=== PATIENT | male | born 1955 | race Hispanic/Latino ===

== ENCOUNTER 2017-02-18 10:35 | Inpatient (IN) | payer OTHER ==
[2017-02-18 11:09] LABS: Basophils % (Auto) 1.1 % (0.0-1.8); Eosinophils % (Auto) 1.3 % (0.0-4.3); Hematocrit 46.1 % (35.5-45.6); Hemoglobin 15.6 gm/dl (11.8-15.2); Mean Corpuscular HGB Conc 34 % (32-34); Mean Corpuscular Hemoglobin 30 pg (28-32); Mean Corpuscular Volume 87 fl (84-94); Platelet Count 224 K/mm3 (140-440); Red Blood Count 5.28 M/mm3 (3.65-5.03); Red Cell Distribution Width 15.4 % (13.2-15.2); White Blood Count 9.2 K/mm3 (4.5-11.0)
[2017-02-18 11:25] LABS: Anion Gap 18 mmol/L; BUN/Creatinine Ratio 19; Blood Urea Nitrogen 13 mg/dL (9-20); Calcium 9.2 mg/dL (8.4-10.2); Carbon Dioxide 23 mmol/L (22-30); Glucose 134 mg/dL (75-100); Potassium 4.3 mmol/L (3.6-5.0); Sodium 136 mmol/L (137-145)
[2017-02-18] MEDS ORDERED: NACL 0.9% 1000 ML 1,000 ML ONE (11:31)
[2017-02-18] MEDS ORDERED: NACL 0.9% 500 ML 500 ML ONE (11:32)
[2017-02-18] MEDS ORDERED: CORDARONE 150 MG in D5W 100 ML IV ONE (12:00)
[2017-02-18 12:03] LABS: Hematocrit 45.6 % (35.5-45.6); Hemoglobin 15.6 gm/dl (11.8-15.2); Mean Corpuscular HGB Conc 34 % (32-34); Mean Corpuscular Hemoglobin 30 pg (28-32); Mean Corpuscular Volume 87 fl (84-94); Platelet Count 214 K/mm3 (140-440); Red Blood Count 5.23 M/mm3 (3.65-5.03); Red Cell Distribution Width 15.3 % (13.2-15.2); White Blood Count 8.9 K/mm3 (4.5-11.0)
[2017-02-18 12:11] LABS: INR 1.52 (0.87-1.13)
--- NOTE | 2017-02-18 12:15 | Emergency Department Report ---
ED Palpitations HPI - General Chief Complaint: Arrhythmia/Palpitations Stated Complaint: RAPID HEART RATE Time Seen by Provider: 02/18/17 11:38 Source: patient Mode of arrival: Ambulatory Limitations: No Limitations - History of Present Illness Initial Comments: Patient said yesterday he felt lightheaded he also felt palpitations. His heart rate as high as 140s. He called his primary care doctor today and they advised him to come into the emergency room to be evaluated MD Complaint: rapid heart beat Onset/Timin (day) -: Gradual Context: occured during rest Arrythmia History: atrial fibrillation Associated Symptoms: other (light headed) - Related Data Home Medications Medication Instructions Recorded Confirmed Last Taken Allopurinol 100 mg PO DAILY PRN 07/19/15 09/27/16 09/27/16 Lisinopril 2.5 mg PO DAILY 07/19/15 09/27/16 09/26/16 Simvastatin 20 mg PO QPM 07/19/15 09/27/16 09/26/16 Warfarin Sodium 7.5 mg PO 2XW 07/19/15 09/27/16 09/22/16 Warfarin [Coumadin] 5 mg PO 5XW 07/19/15 09/27/16 09/26/16 metFORMIN [Glucophage] 850 mg PO BID 07/19/15 09/27/16 09/27/16 Fluticasone [Flonase] 2 spray INNOSTRIL QPM 08/22/15 09/27/16 09/26/16 Ketorolac Tromethamin 0.4%(Nf) 1 drop OU DAILY PRN 08/22/15 09/27/16 08/21/15 [Acular Ls 0.4% Ophth Isa] Loratadine/Pseudoephedrine 1 tab PO QPM 09/27/16 09/27/16 09/26/16 [Claritin-D 24HR] Vit D3/Folic Acid/B2/B6/B12 1 each PO DAILY 02/18/17 02/18/17 02/17/17 [Folgard Tablet] Previous Rx's Medication Instructions Recorded Last Taken Type Metoprolol [Lopressor TAB] 25 mg PO TID #90 tablet 10/01/16 Unknown Rx Allergies Allergy/AdvReac Type Severity Reaction Status Date / Time Sulfa (Sulfonamide Allergy Shortness Verified 08/22/15 08:11 Antibiotics) of Breath Penicillins AdvReac "sleep a Verified 08/22/15 08:11 lot" ED Review of Systems ROS: Stated complaint: RAPID HEART RATE Other details as noted in HPI Comment: All other systems reviewed and negative ED Past Medical Hx - Past Medical History Previous Medical History?: Yes Hx Hypertension: Yes Hx Congestive Heart Failure: Yes Hx Diabetes: Yes Hx Arthritis: Yes Additional medical history: gout. "irregular heart beat" - Surgical History Past Surgical History?: Yes Hx Open Heart Surgery: Yes (valve replacement) Hx Internal Defibrillator: Yes Additional Surgical History: bilateral feet - Social History Smoking Status: Never Smoker Substance Use Type: None - Medications Home Medications: Home Medications Medication Instructions Recorded Confirmed Last Taken Type Allopurinol 100 mg PO DAILY PRN 07/19/15 09/27/16 09/27/16 History Lisinopril 2.5 mg PO DAILY 07/19/15 09/27/16 09/26/16 History Simvastatin 20 mg PO QPM 07/19/15 09/27/16 09/26/16 History Warfarin Sodium 7.5 mg PO 2XW 07/19/15 09/27/16 09/22/16 History Warfarin [Coumadin] 5 mg PO 5XW 07/19/15 09/27/16 09/26/16 History metFORMIN [Glucophage] 850 mg PO BID 07/19/15 09/27/16 09/27/16 History Fluticasone [Flonase] 2 spray INNOSTRIL QPM 08/22/15 09/27/16 09/26/16 History Ketorolac Tromethamin 0.4%(Nf) 1 drop OU DAILY PRN 08/22/15 09/27/16 08/21/15 History [Acular Ls 0.4% Ophth Isa] Loratadine/Pseudoephedrine 1 tab PO QPM 09/27/16 09/27/16 09/26/16 History [Claritin-D 24HR] Metoprolol [Lopressor TAB] 25 mg PO TID #90 tablet 10/01/16 Unknown Rx Vit D3/Folic Acid/B2/B6/B12 1 each PO DAILY 02/18/17 02/18/17 02/17/17 History [Folgard Tablet] ED Physical Exam - General Limitations: No Limitations General appearance: alert, in no apparent distress - Head Head exam: Present: atraumatic, normocephalic - Eye Eye exam: Present: normal appearance - ENT ENT exam: Present: mucous membranes moist - Neck Neck exam: Present: normal inspection - Respiratory Respiratory exam: Present: normal lung sounds bilaterally. Absent: respiratory distress - Cardiovascular Cardiovascular Exam: Present: regular rate, normal rhythm. Absent: systolic murmur, diastolic murmur, rubs, gallop - GI/Abdominal GI/Abdominal exam: Present: soft, distended (uniformly distended), normal bowel sounds - Rectal Rectal exam: Present: deferred - Extremities Exam Extremities exam: Present: normal inspection - Back Exam Back exam: Present: normal inspection - Neurological Exam Neurological exam: Present: alert, oriented X3 - Psychiatric Psychiatric exam: Present: normal affect, normal mood - Skin Skin exam: Present: warm, dry, intact, normal color. Absent: rash ED Course Vital Signs 02/18/17 02/18/17 02/18/17 10:44 11:20 12:14 Temperature 98.2 F Pulse Rate 134 H 144 H 135 H Respiratory 24 18 18 Rate Blood Pressure 108/83 Blood Pressure 95/64 98/64 [Right] O2 Sat by Pulse 97 97 99 Oximetry 02/18/17 02/18/17 02/18/17 13:16 14:35 14:48 Temperature Pulse Rate 133 H 135 H 133 H Respiratory 18 18 Rate Blood Pressure 98/64 Blood Pressure 90/64 102/55 [Right] O2 Sat by Pulse 97 97 Oximetry 02/18/17 15:27 Temperature Pulse Rate 133 H Respiratory 18 Rate Blood Pressure Blood Pressure 101/65 [Right] O2 Sat by Pulse 97 Oximetry ED Medical Decision Making - Lab Data Result diagrams: 02/18/17 11:52 02/18/17 10:55 - EKG Data -: EKG Interpreted by Hi EKG shows normal: sinus rhythm, axis (left), intervals (normal), QRS complexes ( normal), ST-T waves (nomspecific) - EKG Data 02/18/17 12:16 EKG shows an atrial flutter with a 2 to 1 block. A left bundle branch block which is similar to the EKG done on 09/30/2016 Critical care attestation.: If time is entered above; I have spent that time in minutes in the direct care of this critically ill patient, excluding procedure time. ED Disposition Clinical Impression: Atrial flutter with rapid ventricular response Disposition: OP ADMIT IP TO THIS HOSP Is pt being admited?: Yes Does the pt Need Aspirin: No Condition: Stable Time of Disposition: 15:00 (I spoke to Dr Doyle who accepted for admission at 1445)
[2017-02-18] MEDS ORDERED: NACL 0.9% 500 ML 500 ML IV ONE ×2 (13:00→14:17)
[2017-02-18] MEDS ORDERED: CORDARONE 900 MG in D5W 482 ML IV SCH (13:00)
[2017-02-18] MEDS ORDERED: CARDIZEM IV ONE (14:16)
[2017-02-18] MEDS ORDERED: MILK OF MAGNESIA PO PRN (18:20)
[2017-02-18] MEDS ORDERED: DULCOLAX PR PRN (18:20)
[2017-02-18] MEDS ORDERED: ZOFRAN IV PRN (18:20)
--- NOTE | 2017-02-18 18:20 | History and Physical Report ---
History of Present Illness Date of examination: 02/18/17 Date of admission: 02/18/17 Chief complaint: CC Palpitations 1 day History of present illness: KALISPEL 62 y/o Male with PMH of Htn CHF T2DM gout and arthritis presents with palpitations and Light headedness for one day.No Syncope.Patient was asked by his Pcp to go to the ER No Chest pain. Some Sob present.No recent travel Past History Past Medical History: diabetes, heart failure, hypertension, hyperlipidemia, other (Anticoagulation) Past Surgical History: Other (replacement) Social history: full code Family history: hypertension Medications and Allergies Allergies Allergy/AdvReac Type Severity Reaction Status Date / Time Sulfa (Sulfonamide Allergy Shortness Verified 08/22/15 08:11 Antibiotics) of Breath Penicillins AdvReac "sleep a Verified 08/22/15 08:11 lot" Home Medications Medication Instructions Recorded Confirmed Last Taken Type Allopurinol 100 mg PO DAILY PRN 07/19/15 02/18/17 02/17/17 History Lisinopril 2.5 mg PO DAILY 07/19/15 02/18/17 02/17/17 History Simvastatin 20 mg PO QPM 07/19/15 02/18/17 02/17/17 History Warfarin Sodium 7.5 mg PO 2XW 07/19/15 02/18/17 02/17/17 History Warfarin [Coumadin] 5 mg PO 5XW 07/19/15 02/18/17 02/18/17 History metFORMIN [Glucophage] 850 mg PO BID 07/19/15 02/18/17 02/18/17 History Fluticasone [Flonase] 2 spray INNOSTRIL QPM 08/22/15 02/18/17 02/17/17 History Ketorolac Tromethamin 0.4%(Nf) 1 drop OU DAILY PRN 08/22/15 02/18/17 08/21/15 History [Acular Ls 0.4% Ophth Isa] Loratadine/Pseudoephedrine 1 tab PO QPM 09/27/16 02/18/17 02/17/17 History [Claritin-D 24HR] Metoprolol [Lopressor TAB] 25 mg PO TID #90 tablet 10/01/16 02/18/17 02/18/17 Rx Vit D3/Folic Acid/B2/B6/B12 1 each PO DAILY 02/18/17 02/18/17 02/17/17 History [Folgard Tablet] Active Meds: Active Medications Amiodarone HCl 900 mg/ (Dextrose) 500 mls @ 33.33 mls/hr IV DIRECT SHAYY; 1 MG /MIN PRN Reason: Protocol Last Admin: 02/18/17 12:45 Dose: 1 mg/min, 33.33 mls/hr Review of Systems All systems: negative Cardiovascular: palpitations, rapid/irregular heart beat, shortness of breath Respiratory: shortness of breath, dyspnea on exertion, no cough, no cough with sputum, no excessive sputum, no congestion Gastrointestinal: no abdominal pain, no nausea, no vomiting Genitourinary Male: no dysuria, no hematuria, no flank pain, no discharge Rectal: no pain Musculoskeletal: no neck stiffness, no neck pain, no shooting arm pain, no arm numbness/tingling Integumentary: no rash, no pruritis, no redness Neurological: no head injury, no transient paralysis, no paralysis, no weakness , no seizures, no syncope Psychiatric: no anxiety, no memory loss, no change in sleep habits, no sleep disturbances, no insomnia Endocrine: no cold intolerance, no heat intolerance, no polyphagia, no excessive thirst Hematologic/Lymphatic: no easy bruising, no easy bleeding Allergic/Immunologic: no urticaria, no allergic rhinitis, no wheezing Exam - Constitutional Vitals: Temp Pulse Resp BP Pulse Ox 98.2 F 133 H 16 101/63 97 02/18/17 10:44 02/18/17 16:30 02/18/17 16:30 02/18/17 16:30 02/18/17 16:30 General appearance: Present: no acute distress, mild distress, well-nourished - EENT Eyes: Present: PERRL ENT: hearing intact, clear oral mucosa - Neck Neck: Present: supple, normal ROM - Respiratory Respiratory effort: normal Respiratory: bilateral: CTA - Cardiovascular Heart rate: 130 Rhythm: regularly irregular Heart Sounds: Present: S1 & S2. Absent: rub, click - Extremities Extremities: pulses symmetrical, No edema Peripheral Pulses: within normal limits - Abdominal General gastrointestinal: Present: soft, non-tender, non-distended, normal bowel sounds Male genitourinary: Present: normal - Rectal Rectal Exam: deferred - Integumentary Integumentary: Present: clear, warm, dry - Musculoskeletal Musculoskeletal: gait normal, strength equal bilaterally - Psychiatric Psychiatric: appropriate mood/affect, intact judgment & insight - Neurologic Neurologic: CNII-XII intact, moves all extremities - Allied Health Allied health notes reviewed: nursing, case management Results - Labs CBC & Chem 7: 02/19/17 04:53 02/19/17 04:53 Labs: Laboratory Last Values WBC 8.9 K/mm3 (4.5-11.0) 02/18/17 11:52 RBC 5.23 M/mm3 (3.65-5.03) H 02/18/17 11:52 Hgb 15.6 gm/dl (11.8-15.2) H 02/18/17 11:52 Hct 45.6 % (35.5-45.6) 02/18/17 11:52 MCV 87 fl (84-94) 02/18/17 11:52 MCH 30 pg (28-32) 02/18/17 11:52 MCHC 34 % (32-34) 02/18/17 11:52 RDW 15.3 % (13.2-15.2) H 02/18/17 11:52 Plt Count 214 K/mm3 (140-440) 02/18/17 11:52 Lymph % (Auto) 15.9 % (13.4-35.0) 02/18/17 10:55 Gray % (Auto) 9.1 % (0.0-7.3) H 02/18/17 10:55 Eos % (Auto) 1.3 % (0.0-4.3) 02/18/17 10:55 Baso % (Auto) 1.1 % (0.0-1.8) 02/18/17 10:55 Lymph # 1.5 K/mm3 (1.2-5.4) 02/18/17 10:55 Gray # 0.8 K/mm3 (0.0-0.8) 02/18/17 10:55 Eos # 0.1 K/mm3 (0.0-0.4) 02/18/17 10:55 Baso # 0.1 K/mm3 (0.0-0.1) 02/18/17 10:55 Seg Neutrophils % 72.6 % (40.0-70.0) H 02/18/17 10:55 Seg Neutrophils # 6.7 K/mm3 (1.8-7.7) 02/18/17 10:55 PT 19.2 Sec. (12.2-14.9) H 02/18/17 11:52 INR 1.52 (0.87-1.13) H 02/18/17 11:52 Sodium 136 mmol/L (137-145) L 02/18/17 10:55 Potassium 4.3 mmol/L (3.6-5.0) 02/18/17 10:55 Chloride 99.0 mmol/L (98-107) 02/18/17 10:55 Carbon Dioxide 23 mmol/L (22-30) 02/18/17 10:55 Anion Gap 18 mmol/L 02/18/17 10:55 BUN 13 mg/dL (9-20) 02/18/17 10:55 Creatinine 0.7 mg/dL (0.8-1.5) L 02/18/17 10:55 Estimated GFR > 60 ml/min 02/18/17 10:55 BUN/Creatinine Ratio 19 % 02/18/17 10:55 Glucose 134 mg/dL (75-100) H 02/18/17 10:55 POC Glucose 142 (70-105) H 02/18/17 10:52 Calcium 9.2 mg/dL (8.4-10.2) 02/18/17 10:55 Troponin T < 0.010 ng/mL (0.00-0.029) 02/18/17 15:58 - Imaging and Cardiology EKG: report reviewed (SVT A flutter with 2:1 block LBBB) Chest x-ray: report reviewed Assessment and Plan Advance Directives: Yes (Full code) VTE prophylaxis?: Chemical Plan of care discussed with patient/family: Yes - Patient Problems (1) SVT (supraventricular tachycardia) Current Visit: Yes Status: Acute Plan to address problem: Patient initiated on IV Amiodarone and Cardizem po Cardiology consult requested (2) T2DM (type 2 diabetes mellitus) Current Visit: Yes Status: Chronic Qualifiers: Diabetes mellitus complication status: without complication Diabetes mellitus jail insulin use: without consulting technical director use Qualified Code(s): E11.9 - Type 2 diabetes mellitus without complications Plan to address problem: Cont Metformin and voverage (3) HTN (hypertension) Current Visit: Yes Status: Chronic Qualifiers: Hypertension type: essential hypertension Qualified Code(s): I10 - Essential (primary) hypertension (4) Anticoagulant long-term use Current Visit: Yes Status: Chronic Plan to address problem: Sub therapeutic Patient had Valve replacement in past. Needs inr between 2 and 3 (5) Gout Current Visit: Yes Status: Inactive Plan to address problem: Cont Allopurinol (6) DVT prophylaxis Current Visit: No Status: Acute Plan to address problem: On Coumadin Sub therapeutic.To adjust dosage
[2017-02-18] MEDS ORDERED: MORPHINE IV PRN (18:22)
[2017-02-18] MEDS ORDERED: PERCOCET 5/325 PO PRN (18:22)
[2017-02-18] MEDS ORDERED: ZYLOPRIM PO PRN (18:26)
[2017-02-18] MEDS ORDERED: KETOROLAC TROMETHAMINE OU PRN (18:26)
[2017-02-18] MEDS ORDERED: LISINOPRIL 2.5 MG PO SCH (18:30)
[2017-02-18] MEDS ORDERED: COUMADIN PO SCH ×2 (19:00)
[2017-02-18] MEDS ORDERED: NACL 0.9% 1000 ML 1,000 ML IV SCH (19:00)
[2017-02-18] MEDS ORDERED: CARDIZEM CD PO ONE (19:30)
[2017-02-18] MEDS: GLUCOPHAGE PO SCH (20:57)
[2017-02-18] MEDS: LOPRESSOR PO SCH (20:57)
[2017-02-18] MEDS: CARDIZEM CD PO SCH (20:57)
[2017-02-18] MEDS: COUMADIN PO SCH (20:57)
[2017-02-18] MEDS: PRAVACHOL PO SCH (22:13)
[2017-02-19] MEDS ORDERED: CARDIZEM PO SCH
[2017-02-19 05:44] LABS: Basophils % (Auto) 0.8 % (0.0-1.8); Eosinophils % (Auto) 1.5 % (0.0-4.3); Hematocrit 44.2 % (35.5-45.6); Hemoglobin 14.6 gm/dl (11.8-15.2); Mean Corpuscular HGB Conc 33 % (32-34); Mean Corpuscular Hemoglobin 29 pg (28-32); Mean Corpuscular Volume 87 fl (84-94); Platelet Count 208 K/mm3 (140-440); Red Blood Count 5.08 M/mm3 (3.65-5.03); Red Cell Distribution Width 15.4 % (13.2-15.2)
[2017-02-19 05:53] LABS: INR 1.55 (0.87-1.13)
[2017-02-19 06:05] LABS: Alanine Aminotransferase 18 units/L (7-56); Albumin 3.8 g/dL (3.9-5); Albumin/Globulin Ratio 1.5 %; Alkaline Phosphatase 62 units/L (35-129); Anion Gap 18 mmol/L; BUN/Creatinine Ratio 20; Blood Urea Nitrogen 14 mg/dL (9-20); Carbon Dioxide 23 mmol/L (22-30); Chloride 102.1 mmol/L (98-107); Glucose 124 mg/dL (75-100); Potassium 4.4 mmol/L (3.6-5.0); Sodium 139 mmol/L (137-145); Total Protein 6.3 g/dL (6.3-8.2)
[2017-02-19] MEDS ORDERED: LOVENOX SUB-Q SCH ×2 (10:00→22:00)
[2017-02-19] MEDS: CARDIZEM CD PO SCH (10:12)
[2017-02-19] MEDS: LOPRESSOR PO SCH ×3 (10:12→20:46)
[2017-02-19] MEDS: ZESTRIL PO SCH (10:13)
[2017-02-19] MEDS: NOVOLOG SUB-Q SCH ×3 (11:30→23:20)
[2017-02-19] MEDS: GLUCOPHAGE PO SCH ×2 (12:03→17:43)
--- NOTE | 2017-02-19 13:32 | Progress Note ---
Assessment and Plan /SVT (supraventricular tachycardia) Patient initiated on IV Amiodarone and Cardizem po will change amioderone to po Cardiology consult requested /T2DM (type 2 diabetes mellitus) Cont Metformin and Insulin coverage /HTN (hypertension) cont metoprolol, lisinopril and cardizem for now /Anticoagulant long-term use subtherapeutic INR Patient had Valve replacement in past. Needs inr between 2 and 3 / Gout Cont Allopurinol /History of aortic valve replacement : Stable /Nonischemic cardiomyopathy; continue anti-failure medications, EF 35-40% /Status post ICD; stable /Morbid obesity/obstructive sleep apnea CPAP at night, counseling done patient advised dietary modification exercise as tolerated and weight reduction when stable May benefit by bariatric surgical consultation for weight reduction program when medically stable /History of COPD, well compensated Continue oxygen and nebulizers and supportive care /Dyslipidemia stable on lipid-lowering medications / DVT prophylaxis On Coumadin Sub therapeutic.To adjust dosage brief History: 62 y/o male presented with lightheadedness and palpitation Physical exam: General appearance: Present: no acute distress, mild distress, well-nourished - EENT Eyes: Present: PERRL ENT: hearing intact, clear oral mucosa - Neck Neck: Present: supple, normal ROM - Respiratory Respiratory effort: normal Respiratory: bilateral: CTA - Cardiovascular Heart rate: 130 Rhythm: regularly irregular Heart Sounds: Present: S1 & S2. Absent: rub, click - Extremities Extremities: pulses symmetrical, No edema Peripheral Pulses: within normal limits - Abdominal General gastrointestinal: Present: soft, non-tender, non-distended, normal bowel sounds Male genitourinary: Present: normal - Rectal Rectal Exam: deferred - Integumentary Integumentary: Present: clear, warm, dry - Musculoskeletal Musculoskeletal: gait normal, strength equal bilaterally - Psychiatric Psychiatric: appropriate mood/affect, intact judgment & insight - Neurologic Neurologic: CNII-XII intact, moves all extremities - Allied Health Allied health notes reviewed: nursing, case management Subjective Date of service: 02/19/17 Interval history: Pt seen and examined denies chest pain, c/o palpitation Objective - Constitutional Vitals: Vital Signs - 12hr 02/19/17 02/19/17 02/19/17 04:01 04:27 08:58 Temperature 98.4 F 98.3 F Pulse Rate 75 60 49 L Respiratory 20 18 Rate Blood Pressure 102/64 116/77 O2 Sat by Pulse 98 97 Oximetry 02/19/17 02/19/17 10:12 10:13 Temperature Pulse Rate 129 H 129 H Respiratory Rate Blood Pressure 116/77 116/77 O2 Sat by Pulse Oximetry - Labs CBC & Chem 7: 02/19/17 04:53 02/19/17 04:53 Labs: Abnormal lab results 02/19/17 02/19/17 02/19/17 Range/Units 04:53 04:53 04:53 RBC 5.08 H (3.65-5.03) M/mm3 RDW 15.4 H (13.2-15.2) % [place] % (Auto) 8.5 H (0.0-7.3) % Seg Neutrophils % 74.1 H (40.0-70.0) % PT 19.5 H (12.2-14.9) Sec. INR 1.55 H (0.87-1.13) Creatinine 0.7 L (0.8-1.5) mg/dL Glucose 124 H (75-100) mg/dL POC Glucose (70-105) Albumin 3.8 L (3.9-5) g/dL 02/19/17 Range/Units 12:06 RBC (3.65-5.03) M/mm3 RDW (13.2-15.2) % [place] % (Auto) (0.0-7.3) % Seg Neutrophils % (40.0-70.0) % PT (12.2-14.9) Sec. INR (0.87-1.13) Creatinine (0.8-1.5) mg/dL Glucose (75-100) mg/dL POC Glucose 119 H (70-105) Albumin (3.9-5) g/dL
[2017-02-19] MEDS: CORDARONE PO SCH ×2 (15:00→21:47)
[2017-02-19] MEDS: COUMADIN PO SCH (17:43)
[2017-02-19] MEDS: FLONASE NS SCH (18:00)
[2017-02-19] MEDS ORDERED: NON-FORMULARY (Simvastatin [Simvastatin] 20 MG) PO SCH (18:00)
[2017-02-19] MEDS ORDERED: CLARITIN-D 24HR PO SCH (18:00)
[2017-02-19] MEDS: PRAVACHOL PO SCH (21:47)
[2017-02-19] MEDS: LOVENOX SUB-Q SCH (21:47)
[2017-02-20 06:13] LABS: INR 2.18 (0.87-1.13)
[2017-02-20] MEDS: NOVOLOG SUB-Q SCH ×3 (07:30→17:28)
[2017-02-20] MEDS: LOPRESSOR PO SCH ×3 (08:47→21:59)
[2017-02-20] MEDS: GLUCOPHAGE PO SCH ×2 (08:47→17:25)
[2017-02-20] MEDS: LOVENOX SUB-Q SCH (10:28)
[2017-02-20] MEDS: ZESTRIL PO SCH (10:49)
--- NOTE | 2017-02-20 11:15 | XRay Report ---
AP CHEST :02/20/17 CLINICAL: Shortness of breath. COMPARISON:09/27/16 FINDINGS: Cardiomegaly with an AICD lead in heart. Mild central vascular congestion. The lungs are normally expanded and clear. No airspace disease or pleural effusion. Median sternotomy wires. IMPRESSION: Mild CHF but no pulmonary edema or pleural effusion.
[2017-02-20] MEDS: CORDARONE 900 MG in D5W 482 ML IV SCH (12:32)
[2017-02-20] MEDS: DUONEB *Not for PRN Use IH SCH ×3 (13:21→19:58)
[2017-02-20] MEDS ORDERED: AMBIEN PO PRN (15:35)
--- NOTE | 2017-02-20 15:36 | Progress Note ---
Assessment and Plan /Atrial flutter Patient initiated on IV Amiodarone and Cardizem po following admission Cardiology consult requested will cont amoderone drip, d/c cardizem for low BP /T2DM (type 2 diabetes mellitus) Cont Metformin and Insulin coverage /HTN (hypertension) cont metoprolol, lisinopril for now /Anticoagulant long-term use subtherapeutic INR Patient had Valve replacement in past. Needs INR between 2 and 3 / Gout Cont Allopurinol /History of aortic valve replacement : Stable /Nonischemic cardiomyopathy; continue anti-failure medications, EF 35-40% /Status post ICD; stable /Morbid obesity/obstructive sleep apnea CPAP at night, counseling done patient advised dietary modification exercise as tolerated and weight reduction when stable May benefit by bariatric surgical consultation for weight reduction program when medically stable /History of COPD, well compensated Continue oxygen and nebulizers and supportive care /Dyslipidemia stable on lipid-lowering medications / DVT prophylaxis On Coumadin brief History: 62 y/o male presented with lightheadedness and palpitation Physical exam: General appearance: Present: no acute distress, mild distress, well-nourished - EENT Eyes: Present: PERRL ENT: hearing intact, clear oral mucosa - Neck Neck: Present: supple, normal ROM - Respiratory Respiratory effort: normal Respiratory: bilateral: CTA - Cardiovascular Heart rate: 130s Rhythm: regularly irregular Heart Sounds: Present: S1 & S2. Absent: rub, click - Extremities Extremities: pulses symmetrical, No edema Peripheral Pulses: within normal limits - Abdominal General gastrointestinal: Present: soft, non-tender, non-distended, normal bowel sounds Male genitourinary: Present: normal - Rectal Rectal Exam: deferred - Integumentary Integumentary: Present: clear, warm, dry - Musculoskeletal Musculoskeletal: gait normal, strength equal bilaterally - Psychiatric Psychiatric: appropriate mood/affect, intact judgment & insight - Neurologic Neurologic: CNII-XII intact, moves all extremities - Allied Health Allied health notes reviewed: nursing, case management Subjective Date of service: 02/20/17 Interval history: Pt seen and examined denies chest pain, c/o palpitation complaints that he could not sleep well last night BP noted to be low this am Objective - Constitutional Vitals: Vital Signs - 12hr 02/20/17 02/20/17 02/20/17 05:24 08:47 08:49 Temperature 97.7 F 98.5 F Pulse Rate 131 H 134 H Pulse Rate [ Bilateral Throughout] Pulse Rate [ From Monitor] Respiratory 22 18 Rate Respiratory Rate [Bilateral Throughout] Blood Pressure 86/62 96/68 96/68 O2 Sat by Pulse 97 Oximetry 02/20/17 02/20/17 02/20/17 08:58 10:30 10:49 Temperature Pulse Rate 136 H 136 H Pulse Rate [ Bilateral Throughout] Pulse Rate [ 134 H From Monitor] Respiratory Rate Respiratory Rate [Bilateral Throughout] Blood Pressure 102/78 102/78 O2 Sat by Pulse 97 Oximetry 02/20/17 02/20/17 12:36 13:33 Temperature 98.6 F Pulse Rate 134 H Pulse Rate [ 131 H Bilateral Throughout] Pulse Rate [ From Monitor] Respiratory 20 Rate Respiratory 16 Rate [Bilateral Throughout] Blood Pressure 110/81 O2 Sat by Pulse 97 Oximetry - Labs CBC & Chem 7: 02/19/17 04:53 02/19/17 04:53 Labs: Abnormal lab results 02/18/17 02/19/17 02/19/17 Range/Units 20:34 09:01 17:46 PT (12.2-14.9) Sec. INR (0.87-1.13) POC Glucose 144 H 188 H 146 H (70-105) 02/19/17 02/20/17 02/20/17 Range/Units 22:19 05:43 08:49 PT 25.6 H (12.2-14.9) Sec. INR 2.18 H (0.87-1.13) POC Glucose 107 H 150 H (70-105)
[2017-02-20] MEDS: COUMADIN PO SCH (17:25)
[2017-02-20] MEDS: FLONASE NS SCH (20:21)
[2017-02-20] MEDS: PRAVACHOL PO SCH (21:59)
--- NOTE | 2017-02-21 01:15 | Consultation ---
CARDIOLOGY CONSULTATION HISTORY OF PRESENT ILLNESS: The patient is a 62-year-old white gentleman being followed in our office by Dr. Mikal Shore, last James started feeling palpitations and lightheaded. Hence, he came to the Emergency Room and he was found to be in atrial flutter with rate of 140 beats per minute. He presented to the Emergency Room. The patient was admitted to telemetry. His rate slowed down when started on amiodarone, but when it was discontinued, his heart rate is still in 140s, atrial fibrillation flutter. Hence, the consultation. PAST MEDICAL HISTORY: Significant for history of mechanical aortic valve replacement, on 02/08/[address] Urias, on anticoagulation since then. History of atrial fibrillation, history of dilated cardiomyopathy and congestive heart failure diagnosed in 2009 and has ICD inserted. The patient had a left heart catheterization done in 07/2015, which showed patent coronaries functioning mechanical mitral valve. Echo done in 10/2015, showed ejection fraction of 40%-45% with mild to moderate concentric LVH. Interrogation of the ICD in the past showed evidence of periods of atrial fibrillation. The patient had echocardiogram done on 09/30/2015, which showed ejection fraction 25%-30% with severe global hypokinesis. Left atrium is mildly enlarged. The patient also carries a diagnosis of diabetes mellitus since 2009 and also diagnosis of hypertension since the same time. Diagnosed of sleep apnea too. SOCIAL HISTORY: The patient does not smoke or use alcohol. 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 MEDICATIONS: At home included allopurinol 100 mg daily p.r.n., lisinopril 2.5 mg daily, simvastatin 20 mg in the evening, warfarin, metformin 850 mg b.i.d., Flonase 2 sprays. Also, taking Claritin-D for last few days, metoprolol 25 mg 3 times a day in addition to vitamin D, folic acid. REVIEW OF SYSTEMS: He was doing well up to Tuesday and his heart started feeling fluttering and dizzy. No chest pain, no shortness of breath, denied any orthopnea, PND, no fever or coughing. However, he is taking Claritin-D. Denied any unusual headaches. No change in the bowel habits. No urinary symptoms. His activities are limited. He is taking his medications without any problems. One time, he was on p.o. amiodarone. No history of strokes or seizures. No history of DVT or pulmonary emboli. He apparently gained lot of weight in 2007. DIAGNOSTIC AND LABORATORY DATA: His EKG done in the Emergency Room showed atrial fibrillation flutter with 2:1 block and left bundle branch block noted, unchanged from previous EKG. Laboratory data showed hemoglobin of 14.6 g/dL, INR initially was found to be low 1.52, today it is 2.18. Potassium is 4.4, BUN of 14, creatinine 0.7. Troponin is less than 0.010. PHYSICAL EXAMINATION: GENERAL: Morbidly obese gentleman in no acute distress. HEENT: Conjunctivae pink. Sclerae anicteric. NECK: Supple. Difficult to evaluate JVD. HEART: Irregular, ____ clicks are intact. No significant murmurs noted. LUNGS: Decreased breath sounds noted. ABDOMEN: Benign, obese. EXTREMITIES: Mild edema noted. NEUROLOGIC: Alert, oriented x 3. FINAL IMPRESSION: 1. Atrial fibrillation flutter with rapid ventricular response, difficult to control. Apparently, he was on metoprolol 25 mg 3 times a day and is under control. He used to take amiodarone one time. The patient initially was started on IV amiodarone; however, heart rate is under control. However, once amiodarone was discontinued, went back to rapid heart rate. Then, restarted on amiodarone. I agree with the same, one of the contributing factors may be taking the Claritin-D. We will stop the pseudoephedrine and the Claritin and continue the rest of it. 2. History of paroxysmal atrial fibrillation. The patient was in sinus rhythm in September. Underlying left bundle branch block and cardiomyopathy with ejection fraction of 25%-30% on the echocardiogram done on 09/29/2016. 3. Status post aortic valve replacement with mechanical prosthetic valve. 4. Moderate obesity. 5. Sleep apnea. 6. Diabetes mellitus, since 2009, hypertension since 2009, hyperlipidemia. Agree with IV amiodarone. Continue metoprolol. Blood pressure being on the low side. We will monitor. We will discontinue the pseudoephedrine and see how he does. Agree with continuing the warfarin. Thank very much, Dr. Sanchez for letting us participate in outpatient care. JOB# [id number] ARTURO/GERRY
[2017-02-21] MEDS: DUONEB *Not for PRN Use IH SCH ×2 (02:07→11:11)
[2017-02-21 06:05] LABS: INR 2.41 (0.87-1.13)
[2017-02-21] MEDS: NOVOLOG SUB-Q SCH ×5 (08:00→21:40)
[2017-02-21] MEDS: CARDIZEM CD PO SCH (08:01)
[2017-02-21] MEDS: CORDARONE PO SCH (08:01)
[2017-02-21] MEDS ORDERED: PROVENTIL IH PRN (11:17)
[2017-02-21] MEDS: LOPRESSOR PO SCH ×3 (12:47→20:13)
[2017-02-21] MEDS: ZESTRIL PO SCH (12:47)
[2017-02-21] MEDS: GLUCOPHAGE PO SCH ×2 (12:47→18:35)
[2017-02-21] MEDS: CLARITIN PO SCH (12:47)
--- NOTE | 2017-02-21 12:59 | Progress Note ---
Assessment and Plan Assessment: Paroxysmal atrial fibrillation with RVR Dilated NICMP - EF 15-20% AICD in situ Aortic valve replacement in 1999 - anticoagulated on coumadin COPD H/o HTN - currently with intermittent hypotension HLP DM Sleep apnea Obesity Plan: Pt remins in AFib with RVR. Cont amio gtt and PO lopressor as tolerated. Give 1 dose IV digoxin now. Plan for synchronized cardioversion in AM. Indications, potential risks and benefits of cardioversion reviewed with pt and he is agreeable to proceed. NPO after MN. Echo reviewed - EF 15-20%, LV moderate to severely dilated, abnormal LV diastolic function, LA mildly dilated, RV systolic function severely reduced pacemaker wire in RV, RA mildly dilated, mild - would repeat once HR improved. Cont coumadin with tx INR 2-3. Consider referral to [facility] for further eval/management. Assessment and plan reviewed with pt at bedside. The patient has been seen in conjunction with Dr. Brooke Shore who agrees with the assessment and plan of care. Subjective Date of service: 02/21/17 Principal diagnosis: AFib with RVR Interval history: Pt resting up in chair, c/o generalized weakness. Remains in AFib with RVR on tele, HR 130s - 140s, BPs low. Amio gtt infusing. Objective Last Vital Signs Temp 99.2 F 02/21/17 09:11 Pulse 131 H 02/21/17 12:47 Resp 20 02/21/17 11:19 BP 108/83 02/21/17 09:11 Pulse Ox 100 02/21/17 11:16 - Physical Examination General: No Apparent Distress HEENT: Positive: PERRL, Normocephaly, Mucus Membranes Moist Neck: Positive: neck supple, trachea midline Cardiac: Positive: irregularly irregular, S1/S2, Tachycardia, Other (valve click ) Lungs: Positive: Decreased Breath Sounds Neuro: Positive: Grossly Intact Abdomen: Positive: Soft. Negative: Tender Skin: Positive: Clear. Negative: Rash, Wound Musculoskeletal: No Fluid Collection, No Pain, Normal Range of Motion Extremities: Absent: edema - Labs and Meds Coagulation 02/21/17 Range/Units 05:26 PT 27.7 H (12.2-14.9) Sec. INR 2.41 H (0.87-1.13) - Imaging and Cardiology EKG: report reviewed (SVT A flutter with 2:1 block LBBB) - Telemetry EKG Rhythm: Atrial Fibrillation
[2017-02-21] MEDS ORDERED: LANOXIN IV ONE (13:00)
--- NOTE | 2017-02-21 13:54 | Progress Note ---
<ROSEMARIE LEE - Last Filed: 02/21/17 14:56> Assessment and Plan Assessment and plan: 62 y/o Male with PMH of Htn CHF T2DM gout and arthritis presents with palpitations and Light headedness for one day.No Syncope.Patient was asked by his Pcp to go to the ER No Chest pain. Some Sob present.No recent travel Atrial fibrillation with RVR Patient initiated on IV Amiodarone and Cardizem po following admission Cardiology following -will cont amoderone drip, and Cardizem as tolerated - 1 dose IV digoxin given -Plan for synchronized cardioversion in AM. T2DM (type 2 diabetes mellitus) Cont Metformin and Insulin coverage Continue ADA diet Accu checks before meals at bedtime HTN (hypertension) cont metoprolol, lisinopril for now Anticoagulant long-term use Therapeutic INR, to remain between 2 and 3 Patient had Valve replacement in past. Gout Cont Allopurinol History of aortic valve replacement Stable Nonischemic cardiomyopathy Continue anti-failure medications, EF 35-40% Status post ICD stable Morbid obesity/obstructive sleep apnea CPAP at night, counseling done patient advised dietary modification exercise as tolerated and weight reduction when stable May benefit by bariatric surgical consultation for weight reduction program when medically stable History of COPD Well compensated Continue oxygen and nebulizers and supportive care Dyslipidemia Continue lipid-lowering medications DVT prophylaxis On Coumadin History Interval history: Patient seen and examined. Denies chest pain shortness of breath nausea vomiting or diarrhea. He just says that he feels tired this morning. Labs and nursing notes reviewed. Hospitalist Physical - Constitutional Vitals: Temp Pulse Resp BP Pulse Ox 99.2 F 131 H 20 108/83 100 02/21/17 09:11 02/21/17 12:47 02/21/17 11:19 02/21/17 09:11 02/21/17 11:16 General appearance: Present: no acute distress, well-nourished - EENT Eyes: Present: PERRL, EOM intact ENT: hearing intact, clear oral mucosa - Neck Neck: Present: supple, normal ROM - Respiratory Respiratory effort: normal Respiratory: bilateral: CTA - Cardiovascular Rhythm: regularly irregular Heart Sounds: Present: S1 & S2 - Extremities Extremities: no ischemia, pulses intact Peripheral Pulses: within normal limits - Abdominal General gastrointestinal: soft, non-tender - Integumentary Integumentary: Present: clear, warm, dry - Psychiatric Psychiatric: appropriate mood/affect, cooperative - Neurologic Neurologic: CNII-XII intact, moves all extremities - Allied Health Allied health notes reviewed: nursing Results - Labs CBC & Chem 7: 02/19/17 04:53 02/19/17 04:53 Labs: Laboratory Last Values WBC 10.0 K/mm3 (4.5-11.0) 02/19/17 04:53 RBC 5.08 M/mm3 (3.65-5.03) H 02/19/17 04:53 Hgb 14.6 gm/dl (11.8-15.2) 02/19/17 04:53 Hct 44.2 % (35.5-45.6) 02/19/17 04:53 MCV 87 fl (84-94) 02/19/17 04:53 MCH 29 pg (28-32) 02/19/17 04:53 MCHC 33 % (32-34) 02/19/17 04:53 RDW 15.4 % (13.2-15.2) H 02/19/17 04:53 Plt Count 208 K/mm3 (140-440) 02/19/17 04:53 Lymph % (Auto) 15.1 % (13.4-35.0) 02/19/17 04:53 [place] % (Auto) 8.5 % (0.0-7.3) H 02/19/17 04:53 Eos % (Auto) 1.5 % (0.0-4.3) 02/19/17 04:53 Baso % (Auto) 0.8 % (0.0-1.8) 02/19/17 04:53 Lymph # 1.5 K/mm3 (1.2-5.4) 02/19/17 04:53 [place] # 0.8 K/mm3 (0.0-0.8) 02/19/17 04:53 Eos # 0.1 K/mm3 (0.0-0.4) 02/19/17 04:53 Baso # 0.1 K/mm3 (0.0-0.1) 02/19/17 04:53 Seg Neutrophils % 74.1 % (40.0-70.0) H 02/19/17 04:53 Seg Neutrophils # 7.4 K/mm3 (1.8-7.7) 02/19/17 04:53 PT 27.7 Sec. (12.2-14.9) H 02/21/17 05:26 INR 2.41 (0.87-1.13) H 02/21/17 05:26 Sodium 139 mmol/L (137-145) 02/19/17 04:53 Potassium 4.4 mmol/L (3.6-5.0) 02/19/17 04:53 Chloride 102.1 mmol/L (98-107) 02/19/17 04:53 Carbon Dioxide 23 mmol/L (22-30) 02/19/17 04:53 Anion Gap 18 mmol/L 02/19/17 04:53 BUN 14 mg/dL (9-20) 02/19/17 04:53 Creatinine 0.7 mg/dL (0.8-1.5) L 02/19/17 04:53 Estimated GFR > 60 ml/min 02/19/17 04:53 BUN/Creatinine Ratio 20 % 02/19/17 04:53 Glucose 124 mg/dL (75-100) H 02/19/17 04:53 POC Glucose 121 (70-105) H 02/21/17 08:05 Calcium 9.0 mg/dL (8.4-10.2) 02/19/17 04:53 Total Bilirubin 0.40 mg/dL (0.1-1.2) 02/19/17 04:53 AST 20 units/L (5-40) 02/19/17 04:53 ALT 18 units/L (7-56) 02/19/17 04:53 Alkaline Phosphatase 62 units/L (35-129) 02/19/17 04:53 Troponin T < 0.010 ng/mL (0.00-0.029) 02/18/17 15:58 Total Protein 6.3 g/dL (6.3-8.2) 02/19/17 04:53 Albumin 3.8 g/dL (3.9-5) L 02/19/17 04:53 Albumin/Globulin Ratio 1.5 % 02/19/17 04:53 <JOSE ELIAS ZAIDI - Last Filed: 02/21/17 21:37> Assessment and Plan Assessment and plan: I saw and evaluated the patient. I agree with the findings and the plan of care as documented in the Nurse Practitioner's~note, with the following corrections and additions. check labs, Obtian A1c Hospitalist Physical - Constitutional Vitals: Temp Pulse Resp BP Pulse Ox 98.7 F 132 H 20 100/71 94 02/21/17 19:40 02/21/17 20:30 02/21/17 20:30 02/21/17 19:40 02/21/17 20:18 Results - Labs CBC & Chem 7: 02/19/17 04:53 02/19/17 04:53 Labs: Laboratory Last Values WBC 10.0 K/mm3 (4.5-11.0) 02/19/17 04:53 RBC 5.08 M/mm3 (3.65-5.03) H 02/19/17 04:53 Hgb 14.6 gm/dl (11.8-15.2) 02/19/17 04:53 Hct 44.2 % (35.5-45.6) 02/19/17 04:53 MCV 87 fl (84-94) 02/19/17 04:53 MCH 29 pg (28-32) 02/19/17 04:53 MCHC 33 % (32-34) 02/19/17 04:53 RDW 15.4 % (13.2-15.2) H 02/19/17 04:53 Plt Count 208 K/mm3 (140-440) 02/19/17 04:53 Lymph % (Auto) 15.1 % (13.4-35.0) 02/19/17 04:53 [place] % (Auto) 8.5 % (0.0-7.3) H 02/19/17 04:53 Eos % (Auto) 1.5 % (0.0-4.3) 02/19/17 04:53 Baso % (Auto) 0.8 % (0.0-1.8) 02/19/17 04:53 Lymph # 1.5 K/mm3 (1.2-5.4) 02/19/17 04:53 [place] # 0.8 K/mm3 (0.0-0.8) 02/19/17 04:53 Eos # 0.1 K/mm3 (0.0-0.4) 02/19/17 04:53 Baso # 0.1 K/mm3 (0.0-0.1) 02/19/17 04:53 Seg Neutrophils % 74.1 % (40.0-70.0) H 02/19/17 04:53 Seg Neutrophils # 7.4 K/mm3 (1.8-7.7) 02/19/17 04:53 PT 27.7 Sec. (12.2-14.9) H 02/21/17 05:26 INR 2.41 (0.87-1.13) H 02/21/17 05:26 Sodium 139 mmol/L (137-145) 02/19/17 04:53 Potassium 4.4 mmol/L (3.6-5.0) 02/19/17 04:53 Chloride 102.1 mmol/L (98-107) 02/19/17 04:53 Carbon Dioxide 23 mmol/L (22-30) 02/19/17 04:53 Anion Gap 18 mmol/L 02/19/17 04:53 BUN 14 mg/dL (9-20) 02/19/17 04:53 Creatinine 0.7 mg/dL (0.8-1.5) L 02/19/17 04:53 Estimated GFR > 60 ml/min 02/19/17 04:53 BUN/Creatinine Ratio 20 % 02/19/17 04:53 Glucose 124 mg/dL (75-100) H 02/19/17 04:53 POC Glucose 134 (70-105) H 02/21/17 16:34 Calcium 9.0 mg/dL (8.4-10.2) 02/19/17 04:53 Total Bilirubin 0.40 mg/dL (0.1-1.2) 02/19/17 04:53 AST 20 units/L (5-40) 02/19/17 04:53 ALT 18 units/L (7-56) 02/19/17 04:53 Alkaline Phosphatase 62 units/L (35-129) 02/19/17 04:53 Troponin T < 0.010 ng/mL (0.00-0.029) 02/18/17 15:58 Total Protein 6.3 g/dL (6.3-8.2) 02/19/17 04:53 Albumin 3.8 g/dL (3.9-5) L 02/19/17 04:53 Albumin/Globulin Ratio 1.5 % 02/19/17 04:53
[2017-02-21] MEDS: COUMADIN PO SCH (17:30)
[2017-02-21] MEDS: TYLENOL PO PRN (20:12)
[2017-02-21] MEDS: PRAVACHOL PO SCH ×2 (20:13→21:40)
[2017-02-21] MEDS: PULMICORT IH SCH (20:14)
[2017-02-21] MEDS: BROVANA NEBU IH SCH (20:14)
[2017-02-22] MEDS: FLONASE NS SCH ×2 (05:05→18:08)
[2017-02-22 06:16] LABS: INR 2.31 (0.87-1.13)
[2017-02-22 06:24] LABS: Anion Gap 17 mmol/L; BUN/Creatinine Ratio 16; Blood Urea Nitrogen 11 mg/dL (9-20); Calcium 9.4 mg/dL (8.4-10.2); Carbon Dioxide 26 mmol/L (22-30); Chloride 98.7 mmol/L (98-107); Glucose 138 mg/dL (75-100); Sodium 138 mmol/L (137-145)
[2017-02-22] MEDS: CORDARONE 900 MG in D5W 482 ML IV SCH (06:40)
[2017-02-22] MEDS ORDERED: NACL 0.9% 1000 ML 1,000 ML ONE (08:54)
[2017-02-22] MEDS: NOVOLOG SUB-Q SCH ×4 (08:57→23:06)
[2017-02-22] MEDS ORDERED: DIPRIVAN 10 MG/ML IV ONE (09:10)
[2017-02-22] MEDS ORDERED: XYLOCAINE MPF 2% ONE ×2 (09:11)
[2017-02-22] MEDS ORDERED: NACL 0.9% 1000 ML 1,000 ML IV ONE (09:15)
[2017-02-22] MEDS: PULMICORT IH SCH ×2 (09:33→20:15)
[2017-02-22] MEDS: BROVANA NEBU IH SCH ×2 (09:33→20:15)
--- NOTE | 2017-02-22 09:33 | Anesthesia Consultation ---
Anesthesia Consult and Med Hx Date of service: 02/22/17 - Airway Anesthetic Teeth Evaluation: Poor ROM Head & Neck: Adequate Mental/Hyoid Distance: Adequate Mallampati Class: Class III Intubation Access Assessment: Possibly Difficult - Pre-Operative Health Status ASA Pre-Surgery Classification: ASA4 Proposed Anesthetic Plan: MAC - Pulmonary Hx Smoking: Yes (quit 10 years ago) Hx Asthma: No COPD: Yes Hx Pneumonia: No Hx Sleep Apnea: Yes (uses CPAP) - Cardiovascular System Hx Hypertension: Yes Hx Coronary Artery Disease: No (nonischemic cardiomyopathy EF 10-20%) Hx Angina: No Hx Internal Defibrillator: Yes Hx Valvular Heart Disease: Yes (aortic valve replacement 1999) - Endocrine Hx End Stage Renal Disease: No Hx Insulin Dependent Diabetes: Yes - Other Systems Hx Obesity: Yes (morbid obesity BMI 41.9)
--- NOTE | 2017-02-22 09:37 | Anesthesia Day of Surgery ---
Anesthesia Day of Surgery - Day of Surgery Patient Examined: Yes Patient H&P Reviewed: Yes Patient is NPO: Yes Beta Blockers: Yes Cardiac Clearance: Yes
--- NOTE | 2017-02-22 10:23 | Progress Note ---
Assessment and Plan Assessment: Paroxysmal atrial fibrillation/atrial flutter with RVR --> s/p cardioversion to NSR this AM Dilated NICMP - EF 15-20% AICD in situ Aortic valve replacement in 1999 - anticoagulated on coumadin COPD H/o HTN - currently with intermittent hypotension HLP DM Sleep apnea Obesity Plan: s/p successful cardioversion to SR this AM. Cont to monitor on telemetry overnight. Initiate PO amio and d/c amio gtt in 6 hours. Cont coumadin with tx INR 2-3. Consider referral to [facility] as OP for further eval/management. Possible d/c home in AM. Assessment and plan reviewed with pt at bedside. The patient has been seen in conjunction with Dr. Brooke Shore who agrees with the assessment and plan of care. Subjective Date of service: 02/22/17 Principal diagnosis: AFib with RVR Interval history: Pt remained in AFlutter 2:1 with RVR overnight. S/p successful cardioversion to NSR this AM. Objective Last Vital Signs Temp 100 F H 02/22/17 09:30 Pulse 89 02/22/17 09:35 Resp 20 02/22/17 09:35 BP 104/74 02/22/17 09:35 Pulse Ox 97 02/22/17 09:35 - Physical Examination General: No Apparent Distress HEENT: Positive: PERRL, Normocephaly, Mucus Membranes Moist Neck: Positive: neck supple, trachea midline Cardiac: Positive: Reg Rate and Rhythm, S1/S2 Lungs: Positive: Decreased Breath Sounds Neuro: Positive: Grossly Intact Abdomen: Positive: Soft. Negative: Tender Skin: Positive: Clear. Negative: Rash, Wound Musculoskeletal: No Fluid Collection, No Pain, Normal Range of Motion Extremities: Absent: edema - Labs and Meds Coagulation 02/22/17 Range/Units 05:38 PT 26.8 H (12.2-14.9) Sec. INR 2.31 H (0.87-1.13) Comprehensive Metabolic Panel 02/22/17 Range/Units 05:38 Sodium 138 (137-145) mmol/L Potassium 4.0 (3.6-5.0) mmol/L Chloride 98.7 (98-107) mmol/L Carbon Dioxide 26 (22-30) mmol/L BUN 11 (9-20) mg/dL Creatinine 0.7 L (0.8-1.5) mg/dL Glucose 138 H (75-100) mg/dL Calcium 9.4 (8.4-10.2) mg/dL - Imaging and Cardiology EKG: report reviewed (SVT A flutter with 2:1 block LBBB)
--- NOTE | 2017-02-22 10:26 | Progress Note ---
Assessment and Plan Assessment and plan: 62 y/o Male with PMH of Htn CHF T2DM gout and arthritis presents with palpitations and Light headedness for one day.No Syncope.Patient was asked by his Pcp to go to the ER No Chest pain. Some Sob present.No recent travel Atrial fibrillation with RVR Cardiology following -amoderone drip d/c to po - 1 dose IV digoxin given -S/p cardioversion to sinus rhythm this morning -continue coumadin with target INR between 2-3 -Possible d/c home in AM. T2DM (type 2 diabetes mellitus) Cont Metformin and Insulin coverage Continue ADA diet Accu checks before meals at bedtime HTN (hypertension) cont metoprolol, lisinopril for now Anticoagulant long-term use Therapeutic INR, to remain between 2 and 3 Patient had Valve replacement in past. Gout Cont Allopurinol History of aortic valve replacement Stable Nonischemic cardiomyopathy Continue anti-failure medications, EF 35-40% Status post ICD stable Morbid obesity/obstructive sleep apnea CPAP at night, counseling done patient advised dietary modification exercise as tolerated and weight reduction when stable May benefit by bariatric surgical consultation for weight reduction program when medically stable History of COPD Well compensated Continue oxygen and nebulizers and supportive care Dyslipidemia Continue lipid-lowering medications DVT prophylaxis On Coumadin History Interval history: Patient seen and examined. Denies chest pain shortness of breath nausea vomiting or diarrhea. Feels much better today. Labs and nursing notes reviewed. Hospitalist Physical - Constitutional Vitals: Temp Pulse Resp BP Pulse Ox 100 F H 89 20 104/74 97 02/22/17 09:30 02/22/17 09:35 02/22/17 09:35 02/22/17 09:35 02/22/17 09:35 General appearance: Present: no acute distress, well-nourished - EENT Eyes: Present: PERRL, EOM intact ENT: hearing intact, clear oral mucosa, dentition normal - Neck Neck: Present: supple, normal ROM - Respiratory Respiratory effort: normal Respiratory: bilateral: CTA - Cardiovascular Rhythm: regular Heart Sounds: Present: S1 & S2 - Extremities Extremities: no ischemia, pulses intact Peripheral Pulses: within normal limits - Abdominal General gastrointestinal: soft, non-tender - Integumentary Integumentary: Present: clear, warm, dry - Psychiatric Psychiatric: appropriate mood/affect, cooperative - Neurologic Neurologic: CNII-XII intact - Allied Health Allied health notes reviewed: nursing Results - Labs CBC & Chem 7: 02/19/17 04:53 02/22/17 05:38 Labs: Laboratory Last Values WBC 10.0 K/mm3 (4.5-11.0) 02/19/17 04:53 RBC 5.08 M/mm3 (3.65-5.03) H 02/19/17 04:53 Hgb 14.6 gm/dl (11.8-15.2) 02/19/17 04:53 Hct 44.2 % (35.5-45.6) 02/19/17 04:53 MCV 87 fl (84-94) 02/19/17 04:53 MCH 29 pg (28-32) 02/19/17 04:53 MCHC 33 % (32-34) 02/19/17 04:53 RDW 15.4 % (13.2-15.2) H 02/19/17 04:53 Plt Count 208 K/mm3 (140-440) 02/19/17 04:53 Lymph % (Auto) 15.1 % (13.4-35.0) 02/19/17 04:53 [place] % (Auto) 8.5 % (0.0-7.3) H 02/19/17 04:53 Eos % (Auto) 1.5 % (0.0-4.3) 02/19/17 04:53 Baso % (Auto) 0.8 % (0.0-1.8) 02/19/17 04:53 Lymph # 1.5 K/mm3 (1.2-5.4) 02/19/17 04:53 [place] # 0.8 K/mm3 (0.0-0.8) 02/19/17 04:53 Eos # 0.1 K/mm3 (0.0-0.4) 02/19/17 04:53 Baso # 0.1 K/mm3 (0.0-0.1) 02/19/17 04:53 Seg Neutrophils % 74.1 % (40.0-70.0) H 02/19/17 04:53 Seg Neutrophils # 7.4 K/mm3 (1.8-7.7) 02/19/17 04:53 PT 26.8 Sec. (12.2-14.9) H 02/22/17 05:38 INR 2.31 (0.87-1.13) H 02/22/17 05:38 Sodium 138 mmol/L (137-145) 02/22/17 05:38 Potassium 4.0 mmol/L (3.6-5.0) 02/22/17 05:38 Chloride 98.7 mmol/L (98-107) 02/22/17 05:38 Carbon Dioxide 26 mmol/L (22-30) 02/22/17 05:38 Anion Gap 17 mmol/L 02/22/17 05:38 BUN 11 mg/dL (9-20) 02/22/17 05:38 Creatinine 0.7 mg/dL (0.8-1.5) L 02/22/17 05:38 Estimated GFR > 60 ml/min 02/22/17 05:38 BUN/Creatinine Ratio 16 % 02/22/17 05:38 Glucose 138 mg/dL (75-100) H 02/22/17 05:38 POC Glucose 118 (70-105) H 02/21/17 21:26 Calcium 9.4 mg/dL (8.4-10.2) 02/22/17 05:38 Magnesium 1.80 mg/dL (1.7-2.3) 02/22/17 05:38 Total Bilirubin 0.40 mg/dL (0.1-1.2) 02/19/17 04:53 AST 20 units/L (5-40) 02/19/17 04:53 ALT 18 units/L (7-56) 02/19/17 04:53 Alkaline Phosphatase 62 units/L (35-129) 02/19/17 04:53 Troponin T < 0.010 ng/mL (0.00-0.029) 02/18/17 15:58 Total Protein 6.3 g/dL (6.3-8.2) 02/19/17 04:53 Albumin 3.8 g/dL (3.9-5) L 02/19/17 04:53 Albumin/Globulin Ratio 1.5 % 02/19/17 04:53 TSH 1.310 mlU/mL (0.270-4.200) 02/22/17 05:38 Free T4 1.54 ng/dL (0.76-1.46) H 02/22/17 05:38
--- NOTE | 2017-02-22 11:29 | Cardiac Catherization Report ---
ELECTRICAL CARDIOVERSION INDICATION FOR PROCEDURE: The patient is a pleasant 62-year-old gentleman who is well known to me with history of nonischemic cardiomyopathy, aortic valve replacement, some 10 years ago with mild prosthetic aortic stenosis, presents here with atrial fibrillation, rapid ventricular response, difficult to control his heart rate despite multiple medications, also hypotensive, has been on Coumadin for years and has been confirmed to be therapeutic for several months. He has been on IV amiodarone, given his hypotension and inability to use other antiarrhythmics, we will proceed with electrical cardioversion. PROCEDURE IN DETAIL: The patient was brought to the cardiac catheterization technologist in a postabsorptive state. Anesthesia at bedside throughout along with nurse and the device rep. The patient has a history of a defibrillator. Once adequate sedation was achieved, we used 150 biphasic joules x 1 successful resumption of sinus rhythm, no complications. The patient awoke nicely, explained the results of the procedure to him. We will watch him closely today and possible discharge tomorrow. CONCLUSIONS: Successful direct current cardioversion of atrial fibrillation, resumption of sinus rhythm without evidence of immediate complications. JOB# [id number] PAULO/GERRY
[2017-02-22] MEDS: TYLENOL PO PRN ×2 (13:04→18:28)
[2017-02-22] MEDS: GLUCOPHAGE PO SCH ×2 (13:04→18:28)
[2017-02-22] MEDS: CORDARONE PO SCH ×2 (13:05→21:20)
[2017-02-22] MEDS: LOPRESSOR PO SCH ×3 (13:05→21:21)
[2017-02-22] MEDS: ZESTRIL PO SCH (13:05)
[2017-02-22] MEDS: CLARITIN PO SCH (13:05)
[2017-02-22] MEDS: COUMADIN PO SCH (18:23)
[2017-02-22] MEDS ORDERED: LEVAQUIN PO SCH (18:30)
[2017-02-22] MEDS: PRAVACHOL PO SCH (21:21)
[2017-02-23] MEDS: TYLENOL PO PRN ×2 (00:55→15:34)
[2017-02-23 06:27] LABS: INR 2.79 (0.87-1.13)
[2017-02-23] MEDS: BROVANA NEBU IH SCH (07:40)
[2017-02-23] MEDS: PULMICORT IH SCH (07:40)
[2017-02-23] MEDS: NOVOLOG SUB-Q SCH ×2 (08:00→12:20)
[2017-02-23] MEDS: GLUCOPHAGE PO SCH (09:00)
[2017-02-23] MEDS: LOPRESSOR PO SCH ×2 (09:00→15:00)
[2017-02-23] MEDS: CLARITIN PO SCH (10:27)
[2017-02-23] MEDS: CORDARONE PO SCH (10:27)
[2017-02-23] MEDS: ZESTRIL PO SCH (10:28)
--- NOTE | 2017-02-23 10:39 | Progress Note ---
Assessment and Plan Assessment: Paroxysmal atrial fibrillation/atrial flutter with RVR --> s/p cardioversion to NSR this AM Dilated NICMP - EF 15-20% AICD in situ Aortic valve replacement in 1999 - anticoagulated on coumadin COPD H/o HTN - currently with intermittent hypotension HLP DM Sleep apnea Obesity Plan: s/p successful cardioversion to SR yesterday and pt remained in SR overnight. Cont current cardiac medical management. Consider referral to [place] [facility] [facility] as OP for further eval/management of parox AFib/ AFlutter. Will obtain left wrist U/S. Currently stable cardiac status. Pt may discharge home from cardiology standpoint. Follow up in our [place] office with Dr. Brooke Shore on 03/11/2017 @ 1:15PM. Assessment and plan reviewed with pt at bedside. The patient has been seen in conjunction with Dr. Brooke Shore who agrees with the assessment and plan of care. Subjective Date of service: 02/23/17 Principal diagnosis: AFib with RVR Interval history: Pt remained in SR overnight. BPs stable. no current cardiac complaints. c/o left wrist swelling and redness associated with PIV infiltration yesterday. Objective Last Vital Signs Temp 98.4 F 02/23/17 05:31 Pulse 98 H 02/23/17 10:28 Resp 16 02/23/17 07:40 BP 129/83 02/23/17 10:28 Pulse Ox 99 02/23/17 07:46 - Physical Examination General: No Apparent Distress HEENT: Positive: PERRL, Normocephaly, Mucus Membranes Moist Neck: Positive: neck supple, trachea midline Cardiac: Positive: Reg Rate and Rhythm, S1/S2, Other (valve click) Lungs: Positive: Decreased Breath Sounds Neuro: Positive: Grossly Intact Abdomen: Positive: Soft. Negative: Tender Skin: Positive: Clear. Negative: Rash, Wound Musculoskeletal: No Fluid Collection, No Pain, Normal Range of Motion Extremities: Present: Other (left wrist redness and swelling). Absent: edema - Labs and Meds Coagulation 02/23/17 Range/Units 05:41 PT 31.1 H (12.2-14.9) Sec. INR 2.79 H (0.87-1.13) - Imaging and Cardiology EKG: report reviewed (SVT A flutter with 2:1 block LBBB) - Telemetry EKG Rhythm: Sinus Rhythm
--- NOTE | 2017-02-23 11:41 | Discharge Summary ---
Providers - Providers Date of Admission: 02/18/17 18:21 Date of discharge: 02/23/17 Attending physician: ENE BYRD MD 02/18/17 18:22 Consult to Physician [CONS] Routine Consulting Provider: BISHNU MYERS Reason For Exam: SVT Place consult to:: Dr. Myers Notified:: Lyudmila RODARTE Phone number called:: Was contact made?: Yes If yes, spoke with:: [facility]wering service Time called:: 10:00 Primary care physician: USE LOWERY Hospitalization Condition: Stable Pertinent studies: Echocardiogram showed EF 15-20%. Chest x-ray revealed mild CHF but no pulmonary edema or pleural effusion. Left upper extremity ultrasound showed nonspecific soft tissue swelling/subcutaneous edema Procedures: Successful abrasion of atrial fibrillation, showing a sinus rhythm without evidence of immediate complications Hospital course: 62 y/o Male with PMH of Htn CHF T2DM gout and arthritis presents with palpitations and Light headedness for one day.No Syncope.Patient was asked by his Pcp to go to the ER No Chest pain. Some Sob present.No recent travel Patient was treated with beta blockers, analgesics, statins, antiarrhythmics, IVF, bronchodilators, and resumed home medications. Patient was clinically stable. Disposition: DC- TO HOME OR SELFCARE Time spent for discharge: 32 mins - Discharge Diagnoses (1) Atrial fibrillation and flutter Status: Acute (2) History of aortic valve replacement Status: Acute (3) History of implantable cardiac defibrillator (ICD) Status: Acute (4) COPD (chronic obstructive pulmonary disease) Status: Acute (5) Dyslipidemia Status: Acute (6) SVT (supraventricular tachycardia) Status: Acute (7) Anticoagulant long-term use Status: Chronic (8) HTN (hypertension) Status: Chronic Qualifiers: Hypertension type: essential hypertension Qualified Code(s): I10 - Essential (primary) hypertension (9) Gout Status: Inactive (10) DVT prophylaxis Status: Acute (11) DARCIE (obstructive sleep apnea) Status: Acute (12) High cholesterol Status: Chronic (13) Obesities, morbid Status: Chronic (14) Type 2 diabetes mellitus Status: Chronic Qualifiers: Diabetes mellitus complication status: without complication Core Measure Documentation - Palliative Care Palliative Care/ Comfort Measures: Not Applicable - Core Measures Any of the following diagnoses?: none Exam - Constitutional Vitals: Temp Pulse Resp BP Pulse Ox 98.4 F 98 H 16 129/83 99 02/23/17 05:31 02/23/17 10:28 02/23/17 07:40 02/23/17 10:28 02/23/17 07:46 General appearance: Present: no acute distress, well-nourished - EENT Eyes: Present: PERRL ENT: hearing intact, clear oral mucosa - Neck Neck: Present: supple, normal ROM - Respiratory Respiratory effort: normal Respiratory: bilateral: CTA - Cardiovascular Heart Sounds: Present: S1 & S2. Absent: rub, click - Extremities Extremities: pulses symmetrical, No edema Peripheral Pulses: within normal limits - Abdominal General gastrointestinal: Present: soft, non-tender, non-distended, normal bowel sounds Male genitourinary: Present: deferred - Rectal Rectal Exam: deferred - Integumentary Integumentary: Present: clear, warm, dry - Musculoskeletal Musculoskeletal: gait normal, strength equal bilaterally - Psychiatric Psychiatric: appropriate mood/affect, intact judgment & insight - Neurologic Neurologic: CNII-XII intact, moves all extremities - Allied Health Allied health notes reviewed: nursing Plan Activity: fall precautions Weight Bearing Status: Weight Bear as Tolerated Diet: low fat, low cholesterol, low salt, diabetic Follow up with: SUE LOWERY MD [Primary Care Provider] - 7 Days THOMAS ANGELES MD [Staff Physician] - 03/11/17 3:15 pm Forms: Warfarin Discharge Instruction Prescriptions: Amiodarone [Cordarone 200 MG TAB] 200 mg PO BID 30 Days tablet Levofloxacin [Levaquin TAB] 500 mg PO Q24H 6 Days tablet
--- NOTE | 2017-02-23 13:50 | Ultrasound Report ---
ULTRASOUND EXTREMITY NONVASCULAR LIMITED, LEFT History: Left wrist swelling and redness. Findings: Targeted grayscale ultrasound with color Doppler interrogation was performed in the left wrist region at the site of swelling. There is nonspecific subcutaneous edema throughout this area. No evidence for abscess or mass. Impression: Nonspecific soft tissue swelling/subcutaneous edema.
[2017-02-23 15:34] VITALS: BP 106/71
== END 2017-02-23 15:30 | disposition home or self-care (01) | DRG 309 ==
LOC: ED 10:35 → 4A 18:21
PROVIDERS: ADMIT Internal Medicine; ATTEND Internal Medicine
PROC: 5A2204Z Restoration of Cardiac Rhythm, Single (ICD-10-PCS; principal; 2017-02-22)
DX: I48.0 Paroxysmal atrial fibrillation (principal); Z68.41 Body mass index [BMI] 40.0-44.9, adult; I48.92 Unspecified atrial flutter; E66.01 Morbid (severe) obesity due to excess calories; M10.9 Gout, unspecified; E11.9 Type 2 diabetes mellitus without complications; Z88.0 Allergy status to penicillin; Z88.2 Allergy status to sulfonamides; Z79.01 Long term (current) use of anticoagulants; I11.0 Hypertensive heart disease with heart failure; I50.9 Heart failure, unspecified; Z79.899 Other long term (current) drug therapy; Z95.810 Presence of automatic (implantable) cardiac defibrillator; Z82.49 Family history of ischemic heart disease and other diseases of the circulatory system; I47.1 Supraventricular tachycardia; J44.9 Chronic obstructive pulmonary disease, unspecified; I42.0 Dilated cardiomyopathy; Z87.891 Personal history of nicotine dependence; E78.00 Pure hypercholesterolemia, unspecified
CPT/HCPCS: 36415; 71010; 80048; 80053; 82962; 83735; 84439; 84443; 84484; 85025; 85027; 85610; 92960; 93005; 93010; 93306; 94640; 96374; 96375; A9270-GY; J0282; J1160; J1650; J2704; J7030; J7040; J7060

== ENCOUNTER 2017-06-21 20:15 | Emergency (ER) | payer OTHER ==
[2017-06-21 23:54] LABS: Basophils # (Auto) 0.1 K/mm3 (0.0-0.1); Basophils % (Auto) 0.7 % (0.0-1.8); Eosinophils # (Auto) 0.1 K/mm3 (0.0-0.4); Eosinophils % (Auto) 1.5 % (0.0-4.3); Hematocrit 46.4 % (35.5-45.6); Hemoglobin 15.3 gm/dl (11.8-15.2); Lymphocytes # (Auto) 1.5 K/mm3 (1.2-5.4); Lymphocytes % (Auto) 18.2 % (13.4-35.0); Mean Corpuscular HGB Conc 33 % (32-34); Mean Corpuscular Hemoglobin 29 pg (28-32); Mean Corpuscular Volume 88 fl (84-94); Monocytes # (Auto) 0.7 K/mm3 (0.0-0.8); Monocytes % (Auto) 8.2 % (0.0-7.3); Platelet Count 204 K/mm3 (140-440); Red Blood Count 5.26 M/mm3 (3.65-5.03); Red Cell Distribution Width 15.7 % (13.2-15.2)
[2017-06-22 00:14] LABS: BUN/Creatinine Ratio 17; Blood Urea Nitrogen 12 mg/dL (9-20); Calcium 9.1 mg/dL (8.4-10.2); Hemolysis Index 9
[2017-06-22 00:44] LABS: INR 1.54 (0.87-1.13); Partial Thromboplastin Time 40.4 Sec. (24.2-36.6)
--- NOTE | 2017-06-22 00:51 | Emergency Department Report ---
ED General Adult HPI - General Chief complaint: High BP Stated complaint: HTN Time Seen by Provider: 06/22/17 00:39 Source: patient, RN notes reviewed, old records reviewed Mode of arrival: Ambulatory Limitations: No Limitations - History of Present Illness Initial comments: This is a 62-year-old male whom I have evaluated in the past. Cardiology: Dr. Shore Past medical history: Ventricular tachycardia, ICD implant, mechanical aortic valve, on Coumadin therapy, had a cardiac catheterization in 2016 at this hospital, demonstrating normal angiographic anatomy. The patient presents to the ER today with a complaint of bitemporal and frontal head pressure and headache, left dorsal hand tingling, and chest pressure. He also reports like he feels like his blood pressure was elevated. He reports compliance with his medications. He denies DVT and pulmonary embolus risk factors. The headache is bitemporal, it is not sudden or thunderclap in nature, it did not reach maximal intensity within an hour, and it is not the most intense headache of his life. Patient reports that he always gets left dorsal hand tingling when his blood pressure gets elevated. The chest pressure started at 4:00 PM yesterday, and lasted for a few minutes, and it did not radiates to the back, arms and neck. There is no nausea, vomiting, diaphoresis. The patient states at this point in time he has no complaints whatsoever. -: Gradual Location: head, chest, upper extremity Radiation: non-radiation Quality: aching Consistency: intermittent Improves with: none Worsens with: none Associated Symptoms: denies: confusion, cough, diaphoresis, fever/chills, loss of appetite, malaise, nausea/vomiting, rash, syncope, weakness - Related Data Home Medications Medication Instructions Recorded Confirmed Last Taken Allopurinol 100 mg PO DAILY PRN 07/19/15 02/18/17 02/17/17 Lisinopril 2.5 mg PO DAILY 07/19/15 02/18/17 02/17/17 Simvastatin 20 mg PO QPM 07/19/15 02/18/17 02/17/17 Warfarin Sodium 7.5 mg PO 2XW 07/19/15 02/18/17 02/17/17 Warfarin [Coumadin] 5 mg PO 5XW 07/19/15 02/18/17 02/18/17 metFORMIN [Glucophage] 850 mg PO BID 07/19/15 02/18/17 02/18/17 Fluticasone [Flonase] 2 spray INNOSTRIL QPM 08/22/15 02/18/17 02/17/17 Ketorolac Tromethamin 0.4%(Nf) 1 drop OU DAILY PRN 08/22/15 02/18/17 08/21/15 [Acular Ls 0.4% Ophth Isa] Loratadine/Pseudoephedrine 1 tab PO QPM 09/27/16 02/18/17 02/17/17 [Claritin-D 24HR] Vit D3/Folic Acid/B2/B6/B12 1 each PO DAILY 02/18/17 02/18/17 02/17/17 [Folgard Tablet] Previous Rx's Medication Instructions Recorded Last Taken Type Metoprolol [Lopressor TAB] 25 mg PO TID #90 tablet 10/01/16 02/18/17 Rx Amiodarone [Cordarone 200 MG TAB] 200 mg PO BID 30 Days tablet 02/23/17 Unknown Rx Levofloxacin [Levaquin TAB] 500 mg PO Q24H 6 Days tablet 02/23/17 Unknown Rx Lisinopril [Zestril TAB] 2.5 mg PO QDAY tablet 02/23/17 Unknown Rx Loratadine [Claritin] 10 mg PO QDAY tablet 02/23/17 Unknown Rx Allergies Allergy/AdvReac Type Severity Reaction Status Date / Time Sulfa (Sulfonamide Allergy Shortness Verified 08/22/15 08:11 Antibiotics) of Breath Penicillins AdvReac "sleep a Verified 08/22/15 08:11 lot" ED Review of Systems ROS: Stated complaint: HTN Other details as noted in HPI Comment: All other systems reviewed and negative ED Past Medical Hx - Past Medical History Previous Medical History?: Yes Hx Hypertension: Yes Hx Congestive Heart Failure: Yes Hx Diabetes: Yes Hx Arthritis: Yes Hx Asthma: No Hx COPD: Yes Additional medical history: gout. sleep apnea - Surgical History Past Surgical History?: No Hx Open Heart Surgery: Yes (valve replacement 1999) Hx Internal Defibrillator: Yes Additional Surgical History: bilateral feet - Social History Smoking Status: Never Smoker Substance Use Type: None - Medications Home Medications: Home Medications Medication Instructions Recorded Confirmed Last Taken Type Allopurinol 100 mg PO DAILY PRN 07/19/15 02/18/17 02/17/17 History Lisinopril 2.5 mg PO DAILY 07/19/15 02/18/17 02/17/17 History Simvastatin 20 mg PO QPM 07/19/15 02/18/17 02/17/17 History Warfarin Sodium 7.5 mg PO 2XW 07/19/15 02/18/17 02/17/17 History Warfarin [Coumadin] 5 mg PO 5XW 07/19/15 02/18/17 02/18/17 History metFORMIN [Glucophage] 850 mg PO BID 07/19/15 02/18/17 02/18/17 History Fluticasone [Flonase] 2 spray INNOSTRIL QPM 08/22/15 02/18/17 02/17/17 History Ketorolac Tromethamin 0.4%(Nf) 1 drop OU DAILY PRN 08/22/15 02/18/17 08/21/15 History [Acular Ls 0.4% Ophth Isa] Loratadine/Pseudoephedrine 1 tab PO QPM 09/27/16 02/18/17 02/17/17 History [Claritin-D 24HR] Metoprolol [Lopressor TAB] 25 mg PO TID #90 tablet 10/01/16 02/18/17 02/18/17 Rx Vit D3/Folic Acid/B2/B6/B12 1 each PO DAILY 02/18/17 02/18/17 02/17/17 History [Folgard Tablet] Amiodarone [Cordarone 200 MG TAB] 200 mg PO BID 30 Days tablet 02/23/17 Unknown Rx Levofloxacin [Levaquin TAB] 500 mg PO Q24H 6 Days tablet 02/23/17 Unknown Rx Lisinopril [Zestril TAB] 2.5 mg PO QDAY tablet 02/23/17 Unknown Rx Loratadine [Claritin] 10 mg PO QDAY tablet 02/23/17 Unknown Rx ED Physical Exam - General Limitations: No Limitations General appearance: alert, in no apparent distress - Head Head exam: Present: atraumatic, normocephalic - Eye Eye exam: Present: normal appearance, PERRL, EOMI, other (visual acuity intact to finger counting, color perception, reading at a close distance). Absent: nystagmus - ENT ENT exam: Present: normal exam, normal orophraynx, mucous membranes moist, normal external ear exam - Neck Neck exam: Present: normal inspection, full ROM - Respiratory Respiratory exam: Present: normal lung sounds bilaterally. Absent: respiratory distress - Cardiovascular Cardiovascular Exam: Present: regular rate, normal rhythm, systolic murmur, clicks. Absent: diastolic murmur, rubs, gallop - GI/Abdominal GI/Abdominal exam: Present: soft, normal bowel sounds. Absent: distended, tenderness, guarding, rebound, rigid, pulsatile mass - Rectal Rectal exam: Present: deferred - Extremities Exam Extremities exam: Present: normal inspection, full ROM, normal capillary refill , pedal edema. Absent: tenderness, calf tenderness - Back Exam Back exam: Present: normal inspection, full ROM. Absent: tenderness, CVA tenderness (R), paraspinal tenderness, vertebral tenderness - Neurological Exam Neurological exam: Present: alert, oriented X3, CN II-XII intact, normal gait ( normal gait. Negative pass pointing. Negative pronator drift.), other ( Extraocular movements intact. Tongue midline. No facial droop. Facial sensation intact to light touch in the V1, V2, V3 distribution bilaterally. 5 and 5 strength in 4 extremities.. Sensation is intact to light touch in 4 extremities.). Absent: motor sensory deficit - Psychiatric Psychiatric exam: Present: normal affect, normal mood - Skin Skin exam: Present: warm, dry, intact, normal color. Absent: rash ED Course Vital Signs 06/21/17 23:23 Temperature 98.5 F Pulse Rate 63 Respiratory 20 Rate Blood Pressure 129/79 O2 Sat by Pulse 97 Oximetry ED Medical Decision Making - Lab Data Result diagrams: 06/21/17 23:38 06/21/17 23:38 Vital Signs 06/21/17 23:23 Temperature 98.5 F Pulse Rate 63 Respiratory 20 Rate Blood Pressure 129/79 O2 Sat by Pulse 97 Oximetry Lab Results 06/21/17 06/21/17 06/21/17 Range/Units 23:38 23:38 23:57 WBC 8.1 (4.5-11.0) K/mm3 RBC 5.26 H (3.65-5.03) M/mm3 Hgb 15.3 H (11.8-15.2) gm/dl Hct 46.4 H (35.5-45.6) % MCV 88 (84-94) fl MCH 29 (28-32) pg MCHC 33 (32-34) % RDW 15.7 H (13.2-15.2) % Plt Count 204 (140-440) K/mm3 Lymph % (Auto) 18.2 (13.4-35.0) % Mckean % (Auto) 8.2 H (0.0-7.3) % Eos % (Auto) 1.5 (0.0-4.3) % Baso % (Auto) 0.7 (0.0-1.8) % Lymph # 1.5 (1.2-5.4) K/mm3 Mckean # 0.7 (0.0-0.8) K/mm3 Eos # 0.1 (0.0-0.4) K/mm3 Baso # 0.1 (0.0-0.1) K/mm3 Seg Neutrophils % 71.4 H (40.0-70.0) % Seg Neutrophils # 5.8 (1.8-7.7) K/mm3 PT 19.4 H (12.2-14.9) Sec. INR 1.54 H (0.87-1.13) APTT 40.4 H (24.2-36.6) Sec. Thrombin Time (15.1-19.6) Sec. Sodium 140 (137-145) mmol/L Potassium 4.1 (3.6-5.0) mmol/L Chloride 99.2 (98-107) mmol/L Carbon Dioxide 28 (22-30) mmol/L Anion Gap 17 mmol/L BUN 12 (9-20) mg/dL Creatinine 0.7 L (0.8-1.5) mg/dL Estimated GFR > 60 ml/min BUN/Creatinine Ratio 17 % Glucose 96 (75-100) mg/dL Calcium 9.1 (8.4-10.2) mg/dL Troponin T (0.00-0.029) ng/mL 06/21/17 06/21/17 06/22/17 Range/Units 23:57 23:57 01:12 WBC (4.5-11.0) K/mm3 RBC (3.65-5.03) M/mm3 Hgb (11.8-15.2) gm/dl Hct (35.5-45.6) % MCV (84-94) fl MCH (28-32) pg MCHC (32-34) % RDW (13.2-15.2) % Plt Count (140-440) K/mm3 Lymph % (Auto) (13.4-35.0) % Mckean % (Auto) (0.0-7.3) % Eos % (Auto) (0.0-4.3) % Baso % (Auto) (0.0-1.8) % Lymph # (1.2-5.4) K/mm3 Mckean # (0.0-0.8) K/mm3 Eos # (0.0-0.4) K/mm3 Baso # (0.0-0.1) K/mm3 Seg Neutrophils % (40.0-70.0) % Seg Neutrophils # (1.8-7.7) K/mm3 PT (12.2-14.9) Sec. INR (0.87-1.13) APTT (24.2-36.6) Sec. Thrombin Time 16.9 (15.1-19.6) Sec. Sodium (137-145) mmol/L Potassium (3.6-5.0) mmol/L Chloride (98-107) mmol/L Carbon Dioxide (22-30) mmol/L Anion Gap mmol/L BUN (9-20) mg/dL Creatinine (0.8-1.5) mg/dL Estimated GFR ml/min BUN/Creatinine Ratio % Glucose (75-100) mg/dL Calcium (8.4-10.2) mg/dL Troponin T < 0.010 < 0.010 (0.00-0.029) ng/mL - EKG Data -: EKG Interpreted by Me - EKG Data Interpretation: no acute changes 06/22/17 01:49 Sinus, left axis deviation left bundle branch block, left axis deviation, premature ventricular contractions, abnormal EKG, not consistent with a STEMI, unchanged from prior EKG from February 2017 - Radiology Data Radiology results: report reviewed, image reviewed Noncontrast CT scan of the brain is negative. X-ray the chest is negative for acute findings. - Medical Decision Making Differential diagnosis, including not limited to: Resolved elevated blood pressure, left hand peripheral neuropathy, subtherapeutic INR, pneumonia, acute coronary syndrome, anxiety, intracranial hemorrhage, migraine headache, tension headache, cluster headache Assessment and plan: 62-year-old male with multiple complaints. His headache is not historically consistent with subarachnoid hemorrhage. He has a GCS of 15 with an NIH score of 0. A noncontrast CT scan of the brain is negative. There are no pulmonary embolus or DVT risk factors he is low risk by well's criteria, INR is subtherapeutic and will be given Lovenox in the ER. The patient is low risk by VINCE score, he is low risk by heart score. Troponins were negative 2, EKG unchanged from prior, his complaint of resolved left hand tingling is not anatomically contiguous with a stroke or transient ischemic attack. There does not appear to be an emergent condition at this time, I have reevaluated the patient multiple times while in the ER, and he is resting comfortably in his stretcher and in no acute distress. He is instructed to follow up with his outpatient spring repairer helper hand in the next 36 hours. I have contacted the covering spring repairer helper hand for his primary spring repairer helper hand, Dr. Kelsie Mckeon, and she recommends that the patient contact the office first morning, and they will get him in as a follow-up later on today or first thing tomorrow. This was conveyed to the patient and he endorsed understanding. Critical care attestation.: If time is entered above; I have spent that time in minutes in the direct care of this critically ill patient, excluding procedure time. ED Disposition Clinical Impression: Subtherapeutic international normalized ratio (INR), History of headache Disposition: DC-01 TO HOME OR SELFCARE Is pt being admited?: No Does the pt Need Aspirin: No Condition: Stable Additional Instructions: Continue outpatient medications. Follow up with your spring repairer helper hand later on today, June 22, or tomorrow, June 23. Contact your spring repairer helper hand's office first thing in the morning, but the office staff know that Dr. Mckeon has been consult at, she covers for Dr. Shore, and her recommendation is for you to follow up as we have already discussed. Please note that Coumadin level was subtherapeutic, he had been given a dose of Lovenox in the ER which is good for 12 hours, and this is followed up by her primary care spring repairer helper hand. Please return to the ER with new pain, worsening pain, migration of pain, fevers, chills, lethargy, irritability, projectile vomiting, change in mental status, confusion, inability to tolerate liquid feeds. Referrals: SUE LOWERY MD [Primary Care Provider] - 3-5 Days THOMAS SHORE MD [Staff Physician] - 3-5 Days
--- NOTE | 2017-06-22 00:56 | Cat Scan Report ---
FINAL REPORT PROCEDURE: CT HEAD/BRAIN WO CON TECHNIQUE: Computerized tomography of the head was performed without contrast material. HISTORY: HTN X 3 DAYS, TINGLING BILATERAL EXTREMITIES , H/A COMPARISON: No prior studies are available for comparison. FINDINGS: Skull and scalp: Normal. Paranasal sinuses: Normal. Ventricles and subarachnoid spaces: Normal. Cerebrum: No evidence of hemorrhage, acute infarction or mass . Cerebellum and brainstem: No evidence of hemorrhage, acute infarction or mass. Vasculature: Normal. Comments: None. IMPRESSION: Normal Examination
--- NOTE | 2017-06-22 01:40 | XRay Report ---
FINAL REPORT PROCEDURE: XR CHEST ROUTINE 2V TECHNIQUE: A portable AP chest radiograph was obtained at 06/22/2017 00:58 (EST) . CPT 87957 HISTORY: cp COMPARISON: No prior studies are available for comparison. FINDINGS: Heart: Normal. Mediastinum/Vessels: Normal. Lungs/Pleural space: Lungs are clear. There are no infiltrates, effusions or pneumothoraces. Bony thorax: No acute osseous abnormality. Life support devices: Pacemaker leads are in proper position. IMPRESSION: No acute cardiopulmonary abnormality.
[2017-06-22] MEDS ORDERED: LOVENOX SUB-Q STA (01:45)
[2017-06-22 01:50] VITALS: BP 116/83
== END 2017-06-22 02:06 | disposition home or self-care (01) ==
LOC: ED 20:15
DX: R79.1 Abnormal coagulation profile (principal); G47.30 Sleep apnea, unspecified; M10.9 Gout, unspecified; J44.9 Chronic obstructive pulmonary disease, unspecified; M19.90 Unspecified osteoarthritis, unspecified site; E11.9 Type 2 diabetes mellitus without complications; I11.0 Hypertensive heart disease with heart failure; Z79.01 Long term (current) use of anticoagulants; Z88.0 Allergy status to penicillin; Z88.2 Allergy status to sulfonamides
CPT/HCPCS: 36415; 70450; 71046; 80048; 84484; 85025; 85610; 85670; 85730; 93005; 93010; 96372; 99284; J1650

== ENCOUNTER 2018-05-04 09:24 | Outpatient (CLI) | payer OTHER ==
[2018-05-04 10:52] LABS: Basophils # (Auto) 0.1 K/mm3 (0.0-0.1); Eosinophils # (Auto) 0.2 K/mm3 (0.0-0.4); Eosinophils % (Auto) 3.3 % (0.0-4.3); Hematocrit 41.7 % (35.5-45.6); Hemoglobin 13.9 gm/dl (11.8-15.2); Lymphocytes % (Auto) 16.8 % (13.4-35.0); Mean Corpuscular HGB Conc 33 % (32-34); Mean Corpuscular Volume 89 fl (84-94); Monocytes # (Auto) 0.6 K/mm3 (0.0-0.8); Monocytes % (Auto) 10.5 % (0.0-7.3); Platelet Count 209 K/mm3 (140-440); Red Blood Count 4.71 M/mm3 (3.65-5.03); Red Cell Distribution Width 14.9 % (13.2-15.2)
[2018-05-04 11:07] LABS: Alanine Aminotransferase 12 units/L (7-56); Albumin 4.3 g/dL (3.9-5); BUN/Creatinine Ratio 14; Blood Urea Nitrogen 11 mg/dL (9-20); Calcium 9.2 mg/dL (8.4-10.2); Hemolysis Index 6
== END 2018-05-04 09:25 | disposition home or self-care (01) ==
LOC: LAB 09:24
PROVIDERS: ATTEND Internal Medicine
DX: E78.5 Hyperlipidemia, unspecified (principal); E11.9 Type 2 diabetes mellitus without complications; E66.01 Morbid (severe) obesity due to excess calories; I11.9 Hypertensive heart disease without heart failure; I50.9 Heart failure, unspecified; E78.00 Pure hypercholesterolemia, unspecified; I48.91 Unspecified atrial fibrillation; J44.9 Chronic obstructive pulmonary disease, unspecified; M19.90 Unspecified osteoarthritis, unspecified site
CPT/HCPCS: 36415; 80053; 82306; 85025

== ENCOUNTER 2018-05-10 10:10 | Inpatient (IN) | payer OTHER ==
[2018-05-10] MEDS ORDERED: HYDROGEN PEROXIDE ONE (10:41)
--- NOTE | 2018-05-10 11:26 | Emergency Department Report ---
ED General Adult HPI - General Chief complaint: Arrhythmia/Palpitations Stated complaint: AFIB Time Seen by Provider: 05/10/18 11:00 Source: patient Mode of arrival: Ambulatory Limitations: No Limitations - History of Present Illness Initial comments: She presents to the ED with a chief complaint of palpitations. Patient states that he was at home when he noticed that his heart rate was elevated as well as his BP. She took a total 100 mg metoprolol this morning for that reason when he normally takes 50 mg. Patient went to his physician's office was EKG later showed A. fib and he was sent to the hospital. She has no complaints besides palpitations thus denied any chest pain, shortness of breath, or headache -: Sudden Radiation: non-radiation Severity scale (0 -10): 0 Consistency: constant Improves with: none Worsens with: none Associated Symptoms: denies other symptoms Treatments Prior to Arrival: none - Related Data Home Medications Medication Instructions Recorded Confirmed Last Taken Allopurinol 100 mg PO DAILY PRN 07/19/15 02/18/17 02/17/17 Lisinopril 2.5 mg PO DAILY 07/19/15 02/18/17 02/17/17 Simvastatin 20 mg PO QPM 07/19/15 02/18/17 02/17/17 Warfarin Sodium 7.5 mg PO 2XW 07/19/15 02/18/17 02/17/17 Warfarin [Coumadin] 5 mg PO 5XW 07/19/15 02/18/17 02/18/17 metFORMIN [Glucophage] 850 mg PO BID 07/19/15 02/18/17 02/18/17 Fluticasone [Flonase] 2 spray INNOSTRIL QPM 08/22/15 02/18/17 02/17/17 Ketorolac Tromethamin 0.4%(Nf) 1 drop OU DAILY PRN 08/22/15 02/18/17 08/21/15 [Acular Ls 0.4% Ophth Isa] Loratadine/Pseudoephedrine 1 tab PO QPM 09/27/16 02/18/17 02/17/17 [Claritin-D 24HR] Vit D3/Folic Acid/B2/B6/B12 1 each PO DAILY 02/18/17 02/18/17 02/17/17 [Folgard Tablet] Previous Rx's Medication Instructions Recorded Last Taken Type Metoprolol [Lopressor TAB] 25 mg PO TID #90 tablet 10/01/16 02/18/17 Rx Amiodarone [Cordarone 200 MG TAB] 200 mg PO BID 30 Days tablet 02/23/17 Unknown Rx Lisinopril [Zestril TAB] 2.5 mg PO QDAY tablet 02/23/17 Unknown Rx Loratadine [Claritin] 10 mg PO QDAY tablet 02/23/17 Unknown Rx levoFLOXacin [Levaquin TAB] 500 mg PO Q24H 6 Days tablet 02/23/17 Unknown Rx Allergies Allergy/AdvReac Type Severity Reaction Status Date / Time Sulfa (Sulfonamide Allergy Shortness Verified 08/22/15 08:11 Antibiotics) of Breath Penicillins AdvReac "sleep a Verified 08/22/15 08:11 lot" ED Review of Systems ROS: Stated complaint: AFIB Other details as noted in HPI Comment: All other systems reviewed and negative Constitutional: denies: chills, fever Eyes: denies: eye pain, eye discharge, vision change ENT: denies: ear pain, throat pain Respiratory: denies: cough, shortness of breath, wheezing Cardiovascular: palpitations. denies: chest pain Endocrine: no symptoms reported Gastrointestinal: denies: abdominal pain, nausea, diarrhea Genitourinary: denies: urgency, dysuria Musculoskeletal: denies: back pain, joint swelling, arthralgia Skin: denies: rash, lesions Neurological: denies: headache, weakness, paresthesias Psychiatric: denies: anxiety, depression Hematological/Lymphatic: denies: easy bleeding, easy bruising ED Past Medical Hx - Past Medical History Hx Hypertension: Yes Hx Congestive Heart Failure: Yes Hx Diabetes: Yes Hx Arthritis: Yes Hx Asthma: No Hx COPD: Yes Additional medical history: gout. sleep apnea - Surgical History Past Surgical History?: Yes Hx Open Heart Surgery: Yes (valve replacement 1999) Hx Internal Defibrillator: Yes Additional Surgical History: bilateral feet - Social History Smoking Status: Former Smoker - Medications Home Medications: Home Medications Medication Instructions Recorded Confirmed Last Taken Type Allopurinol 100 mg PO DAILY PRN 07/19/15 02/18/17 02/17/17 History Lisinopril 2.5 mg PO DAILY 07/19/15 02/18/17 02/17/17 History Simvastatin 20 mg PO QPM 0502/18/17 02/17/17 History Warfarin Sodium 7.5 mg PO 2XW 07/19/15 02/18/17 02/17/17 History Warfarin [Coumadin] 5 mg PO 5XW 07/19/15 02/18/17 02/18/17 History metFORMIN [Glucophage] 850 mg PO BID 07/19/15 02/18/17 02/18/17 History Fluticasone [Flonase] 2 spray INNOSTRIL QPM 08/22/15 02/18/17 02/17/17 History Ketorolac Tromethamin 0.4%(Nf) 1 drop OU DAILY PRN 08/22/15 02/18/17 08/21/15 History [Acular Ls 0.4% Ophth Isa] Loratadine/Pseudoephedrine 1 tab PO QPM 09/27/16 02/18/17 02/17/17 History [Claritin-D 24HR] Metoprolol [Lopressor TAB] 25 mg PO TID #90 tablet 10/01/16 02/18/17 02/18/17 Rx Vit D3/Folic Acid/B2/B6/B12 1 each PO DAILY 02/18/17 02/18/17 02/17/17 History [Folgard Tablet] Amiodarone [Cordarone 200 MG TAB] 200 mg PO BID 30 Days tablet 02/23/17 Unknown Rx Lisinopril [Zestril TAB] 2.5 mg PO QDAY tablet 02/23/17 Unknown Rx Loratadine [Claritin] 10 mg PO QDAY tablet 02/23/17 Unknown Rx levoFLOXacin [Levaquin TAB] 500 mg PO Q24H 6 Days tablet 02/23/17 Unknown Rx ED Physical Exam - General Limitations: No Limitations General appearance: alert, in no apparent distress - Head Head exam: Present: atraumatic, normocephalic - Eye Eye exam: Present: normal appearance, PERRL, EOMI - ENT ENT exam: Present: mucous membranes moist - Neck Neck exam: Present: normal inspection - Respiratory Respiratory exam: Present: normal lung sounds bilaterally. Absent: respiratory distress, wheezes, rales - Cardiovascular Cardiovascular Exam: Present: normal rhythm, tachycardia, irregular rhythm, other (irregularly irregular). Absent: systolic murmur, diastolic murmur, rubs, gallop - GI/Abdominal GI/Abdominal exam: Present: soft, normal bowel sounds. Absent: distended, tenderness - Rectal Rectal exam: Present: deferred - Extremities Exam Extremities exam: Present: normal inspection, other (LE pitting edema) - Back Exam Back exam: Present: normal inspection - Neurological Exam Neurological exam: Present: alert, oriented X3, CN II-XII intact. Absent: motor sensory deficit - Psychiatric Psychiatric exam: Present: normal affect, normal mood - Skin Skin exam: Present: warm, dry, intact, normal color. Absent: rash ED Course Vital Signs 05/10/18 05/10/18 05/10/18 10:16 10:26 10:30 Temperature 98.4 F Pulse Rate 127 H 134 H 125 H Respiratory 20 21 15 Rate Blood Pressure Blood Pressure 101/80 [Right] O2 Sat by Pulse 94 96 Oximetry 05/10/18 05/10/18 05/10/18 10:46 11:00 11:16 Temperature Pulse Rate 126 H 133 H 126 H Respiratory 21 19 17 Rate Blood Pressure 99/79 Blood Pressure [Right] O2 Sat by Pulse 94 95 95 Oximetry 05/10/18 05/10/18 05/10/18 11:30 11:46 12:00 Temperature Pulse Rate 126 H 127 H 114 H Respiratory 20 25 H 17 Rate Blood Pressure 99/79 92/65 89/59 Blood Pressure [Right] O2 Sat by Pulse 97 95 96 Oximetry 05/10/18 12:16 Temperature Pulse Rate 106 H Respiratory 17 Rate Blood Pressure 92/65 Blood Pressure [Right] O2 Sat by Pulse 96 Oximetry ED Medical Decision Making - Lab Data Result diagrams: 05/10/18 10:49 05/10/18 10:49 Lab Results 05/10/18 05/10/18 Range/Units 10:49 10:49 WBC 7.6 (4.5-11.0) K/mm3 RBC 5.07 H (3.65-5.03) M/mm3 Hgb 15.6 H (11.8-15.2) gm/dl Hct 44.2 (35.5-45.6) % MCV 87 (84-94) fl MCH 31 (28-32) pg MCHC 35 H (32-34) % RDW 14.8 (13.2-15.2) % Plt Count 243 (140-440) K/mm3 Lymph % (Auto) 11.5 L (13.4-35.0) % [place] % (Auto) 8.1 H (0.0-7.3) % Eos % (Auto) 2.2 (0.0-4.3) % Baso % (Auto) 0.8 (0.0-1.8) % Lymph # 0.9 L (1.2-5.4) K/mm3 [place] # 0.6 (0.0-0.8) K/mm3 Eos # 0.2 (0.0-0.4) K/mm3 Baso # 0.1 (0.0-0.1) K/mm3 Seg Neutrophils % 77.4 H (40.0-70.0) % Seg Neutrophils # 5.9 (1.8-7.7) K/mm3 Sodium 140 (137-145) mmol/L Potassium 4.1 (3.6-5.0) mmol/L Chloride 100.5 (98-107) mmol/L Carbon Dioxide 24 (22-30) mmol/L Anion Gap 20 mmol/L BUN 10 (9-20) mg/dL Creatinine 0.7 L (0.8-1.5) mg/dL Estimated GFR > 60 ml/min BUN/Creatinine Ratio 14 % Glucose 114 H (75-100) mg/dL Calcium 9.5 (8.4-10.2) mg/dL Phosphorus 2.60 (2.5-4.5) mg/dL Magnesium 1.90 (1.7-2.3) mg/dL Total Bilirubin 0.30 (0.1-1.2) mg/dL Direct Bilirubin < 0.2 (0-0.2) mg/dL AST 18 (5-40) units/L ALT 13 (7-56) units/L Alkaline Phosphatase 68 (35-129) units/L Troponin T < 0.010 (0.00-0.029) ng/mL NT-Pro-B Natriuret Pep 351.6 (0-900) pg/mL Total Protein 7.1 (6.3-8.2) g/dL Albumin 4.5 (3.9-5) g/dL Albumin/Globulin Ratio 1.7 % - EKG Data -: EKG Interpreted by Me (Elio chahal with RVR) Rate: tachycardia - Radiology Data Radiology results: report reviewed - Medical Decision Making Amiodarone drip requested by Dr. Zamudio Discussed plan of care and results with the patient Critical Care Time: Yes Critical care time in (mins) excluding proc time.: 45 Critical care attestation.: If time is entered above; I have spent that time in minutes in the direct care of this critically ill patient, excluding procedure time. ED Disposition Clinical Impression: Afib Disposition: DC-09 OP ADMIT IP TO THIS HOSP Is pt being admited?: No Does the pt Need Aspirin: No Condition: Fair
[2018-05-10 11:30] LABS: Basophils # (Auto) 0.1 K/mm3 (0.0-0.1); Basophils % (Auto) 0.8 % (0.0-1.8); Eosinophils # (Auto) 0.2 K/mm3 (0.0-0.4); Eosinophils % (Auto) 2.2 % (0.0-4.3); Hematocrit 44.2 % (35.5-45.6); Hemoglobin 15.6 gm/dl (11.8-15.2); Lymphocytes # (Auto) 0.9 K/mm3 (1.2-5.4); Lymphocytes % (Auto) 11.5 % (13.4-35.0); Mean Corpuscular HGB Conc 35 % (32-34); Mean Corpuscular Volume 87 fl (84-94); Monocytes # (Auto) 0.6 K/mm3 (0.0-0.8); Monocytes % (Auto) 8.1 % (0.0-7.3); Platelet Count 243 K/mm3 (140-440); Red Blood Count 5.07 M/mm3 (3.65-5.03); Red Cell Distribution Width 14.8 % (13.2-15.2)
--- NOTE | 2018-05-10 11:44 | XRay Report ---
AP CHEST : 05/10/18 10:10:00 CLINICAL: Palpitations. COMPARISON:06/22/17 FINDINGS: Stable cardiomegaly with pacer leads in the heart. Central vascular congestion. The lungs are normally expanded and clear. No airspace disease or pleural effusion. Median sternotomy wires. IMPRESSION: Stable cardiomegaly and pulmonary venous hypertension. No acute cardiopulmonary process.
[2018-05-10 11:45] LABS: BUN/Creatinine Ratio 14; Blood Urea Nitrogen 10 mg/dL (9-20); Calcium 9.5 mg/dL (8.4-10.2); Hemolysis Index 12
[2018-05-10 11:58] LABS: Alanine Aminotransferase 13 units/L (7-56); Albumin 4.5 g/dL (3.9-5)
[2018-05-10 12:06] LABS: Bilirubin,Direct < 0.2 mg/dL (0-0.2)
[2018-05-10] MEDS ORDERED: SODIUM CHLORIDE FLUSH SYRINGE 10 ML IV PRN (12:17)
[2018-05-10] MEDS ORDERED: ZOFRAN IV PRN (12:17)
[2018-05-10] MEDS: CORDARONE 900 MG in D5W 482 ML IV SCH (12:17)
[2018-05-10] MEDS ORDERED: TYLENOL PO PRN (12:17)
[2018-05-10] MEDS ORDERED: PROVENTIL IH PRN (12:17)
--- NOTE | 2018-05-10 12:17 | History and Physical Report ---
History of Present Illness Chief complaint: My heart is beating really fast History of present illness: 63 YO Male with HTN, Atrial Fib on therapeutic anticoagulation, Systolic CHF, DM, OA, COPD, HLD, Aortic Valve Replacement, PVD, Gout, DARCIE presents to ED for evaluation. Pt states that he has experienced chest palpitations over the past 1 day with persistent symptoms over the past 5 hours. 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 Pt was instructed to seek further care at [facility]. Pt seen and evaluated in ED and found to have AF with RVR. Pt treated with medical cardioversion with Amiodarone as per cardiology team recommendations. Pt admitted to telemetry. Cardiology consulted in ED. Pt denies Fever, Chills, CP, NVD, Trauma, BRBPR, Hemoptysis, Productive cough, Syncope, Skin Rash, or recent ill contact. Past History Past Medical History: arthritis, COPD, diabetes, heart failure, hypertension, other (Gout, DARCIE) Past Surgical History: valve replacement, Other (Foot surgery) Social history: single. denies: smoking, alcohol abuse, prescription drug abuse Family history: diabetes, hypertension Medications and Allergies Allergies Allergy/AdvReac Type Severity Reaction Status Date / Time Sulfa (Sulfonamide Allergy Shortness Verified 08/22/15 08:11 Antibiotics) of Breath Penicillins AdvReac "sleep a Verified 08/22/15 08:11 lot" Home Medications Medication Instructions Recorded Confirmed Last Taken Type Allopurinol 100 mg PO DAILY 07/19/15 05/10/18 02/17/17 History Simvastatin 20 mg PO QPM 07/19/15 05/10/18 02/17/17 History Warfarin Sodium 7.5 mg PO 3XW 07/19/15 05/10/18 02/17/17 History Warfarin [Coumadin] 5 mg PO 4XW 07/19/15 05/10/18 02/18/17 History metFORMIN [Glucophage] 850 mg PO BID 07/19/15 05/10/18 02/18/17 History Fluticasone [Flonase] 2 spray INNOSTRIL QPM 08/22/15 05/10/18 02/17/17 History Ketorolac Tromethamin 0.4%(Nf) 1 drop OU DAILY PRN 0605/10/18 08/21/15 History [Acular Ls 0.4% Ophth Isa] Vit D3/Folic Acid/B2/B6/B12 1 each PO DAILY 02/18/17 05/10/18 02/17/17 History [Folgard Tablet] Amiodarone [Cordarone 200 MG TAB] 200 mg PO BID 30 Days tablet 02/23/17 05/10/18 Unknown Rx Lisinopril [Zestril TAB] 2.5 mg PO QDAY tablet 02/23/17 05/10/18 Unknown Rx Meloxicam [Mobic] 7.5 mg PO QDAY 05/10/18 05/10/18 Unknown History Metoprolol [Lopressor TAB] 50 mg PO QAM 05/10/18 05/10/18 Unknown History Metoprolol [Lopressor] 25 mg PO QPM 05/10/18 05/10/18 Unknown History Active Meds: Active Medications Amiodarone HCl 150 mg/ (Dextrose) 100 mls @ 600 mls/hr IV ONCE ONE Stop: 05/10/18 12:33 Last Admin: 05/10/18 12:05 Dose: 600 mls/hr Documented by: Amiodarone HCl 900 mg/ (Dextrose) 500 mls @ 33.333 mls/hr IV DIRECT SHAYY; Protocol Review of Systems Constitutional: no weight loss, no weight gain, no fever, no chills Ears, nose, mouth and throat: no ear pain, no ear discharge, no tinnitis, no decreased hearing, no nose pain Cardiovascular: palpitations Respiratory: no cough, no cough with sputum, no excessive sputum, no hemoptysis Gastrointestinal: no nausea, no vomiting, no diarrhea Genitourinary Male: no hematuria, no flank pain, no discharge, no urinary frequency, no urinary hesitancy Rectal: no pain, no incontinence, no bleeding Musculoskeletal: no neck stiffness, no neck pain, no shooting arm pain, no arm numbness/tingling, no low back pain Integumentary: no rash, no pruritis, no redness, no sores, no wounds Neurological: no transient paralysis, no paralysis, no weakness, no parathesias, no numbness, no tingling Psychiatric: no anxiety, no memory loss, no change in sleep habits, no sleep disturbances, no insomnia, no hypersomnia Endocrine: no cold intolerance, no heat intolerance, no polyphagia, no excessive thirst, no polydipsia, no polyuria Hematologic/Lymphatic: no easy bruising, no easy bleeding, no lymphadenopathy, no lymphedema Allergic/Immunologic: no urticaria, no allergic rhinitis, no wheezing, no persistent infections, no anaphylaxis Exam - Constitutional Vitals: Temp Pulse Resp BP Pulse Ox 98.4 F 127 H 20 101/80 94 05/10/18 10:16 05/10/18 10:16 05/10/18 10:16 05/10/18 10:16 05/10/18 10:16 General appearance: Present: mild distress, obese - EENT Eyes: Present: PERRL ENT: hearing intact, clear oral mucosa - Neck Neck: Present: supple, normal ROM - Respiratory Respiratory effort: normal Respiratory: bilateral: CTA - Cardiovascular Rhythm: irregularly irregular Heart Sounds: Present: S1 & S2. Absent: rub, click - Extremities Extremities: pulses symmetrical, No edema Peripheral Pulses: within normal limits - Abdominal General gastrointestinal: Present: soft, non-tender, non-distended, normal bowel sounds Male genitourinary: Present: normal - Integumentary Integumentary: Present: clear, warm, dry - Musculoskeletal Musculoskeletal: gait normal, strength equal bilaterally - Psychiatric Psychiatric: appropriate mood/affect, intact judgment & insight - Neurologic Neurologic: CNII-XII intact, moves all extremities Results - Labs CBC & Chem 7: 05/11/18 10:32 05/11/18 05:45 Labs: Abnormal lab results 05/10/18 05/10/18 Range/Units 10:49 10:49 RBC 5.07 H (3.65-5.03) M/mm3 Hgb 15.6 H (11.8-15.2) gm/dl MCHC 35 H (32-34) % Lymph % (Auto) 11.5 L (13.4-35.0) % [place] % (Auto) 8.1 H (0.0-7.3) % Lymph # 0.9 L (1.2-5.4) K/mm3 Seg Neutrophils % 77.4 H (40.0-70.0) % Creatinine 0.7 L (0.8-1.5) mg/dL Glucose 114 H (75-100) mg/dL Assessment and Plan - Patient Problems (1) CHF (congestive heart failure) Current Visit: Yes Status: Acute Qualifiers: Heart failure chronicity: acute Plan to address problem: Admit to telemetry: Cardiology consulted in ED, strict I/O, daily weight, afterload reduction, supplemental oxygen, pulse oximetry, chest x ray, bnp, review previous echo. (2) Atrial fibrillation and flutter Current Visit: No Status: Acute Plan to address problem: continue therapeutic anticoagulation, INR, amiodarone drip, admit to telemetry, cardiology consulted in ED. (3) HTN (hypertension) Current Visit: Yes Status: Acute Qualifiers: Hypertension type: essential hypertension Qualified Code(s): I10 - Essential (primary) hypertension Plan to address problem: Monitor bp q shift, continue medical management (4) Diabetes Current Visit: No Status: Acute Plan to address problem: ADA diet, insulin, accu check (5) DVT prophylaxis Current Visit: No Status: Acute Plan to address problem: SCD to BLE while in bed.
--- NOTE | 2018-05-10 12:19 | Consultation ---
History of Present Illness Consult date: 05/10/18 Requesting physician: MARISSA BARKER Consult reason: atrial fibrillation History of present illness: This is a 61-year-old gentleman, with a past medical history of paroxysmal atrial fibrillation s/p DCCV 02/2017, hypertension, nonischemic cardiopathy, AICD in situ ([place]), COPD, diabetes, hyperlipidemia, aortic valve replacement in 1999, anticoagulated on coumadin, sleep apnea, hypertension, PVD, obesity He is followed in our office by Dr. Brooke Shore. He presented with c/o palpitations since this morning. He denies any chest pain, SOB, n/v, diaphoresis, dizziness, or syncope. He was noted to be in AFib RVR in our office and was referred to [facility] ED for further eval/management. On evaluation, pt noted to be in AFib with RVR HR 130s, LBBB. Echo done 02/2017 showed EF 15-20%, abnormal diastolic function, LA mildly dilated, RV systolic function severely reduced, pacemaker wire in RV, RA milldy dilated, mild aortic stenosis. Lexiscan MPI stress test done 09/2017 was negative for ischemia, EF 33%. LHC 07/2015 showed patent coronaries, functional mechanical AV. Past History Past Medical History: other (as per HPI) Medications and Allergies Allergies Allergy/AdvReac Type Severity Reaction Status Date / Time Sulfa (Sulfonamide Allergy Shortness Verified 08/22/15 08:11 Antibiotics) of Breath Penicillins AdvReac "sleep a Verified 08/22/15 08:11 lot" Home Medications Medication Instructions Recorded Confirmed Last Taken Type Allopurinol 100 mg PO DAILY PRN 07/19/15 02/18/17 02/17/17 History Lisinopril 2.5 mg PO DAILY 07/19/15 02/18/17 02/17/17 History Simvastatin 20 mg PO QPM 07/19/15 02/18/17 02/17/17 History Warfarin Sodium 7.5 mg PO 2XW 07/19/15 02/18/17 02/17/17 History Warfarin [Coumadin] 5 mg PO 5XW 07/19/15 02/18/17 02/18/17 History metFORMIN [Glucophage] 850 mg PO BID 07/19/15 02/18/17 02/18/17 History Fluticasone [Flonase] 2 spray INNOSTRIL QPM 08/22/15 02/18/17 02/17/17 History Ketorolac Tromethamin 0.4%(Nf) 1 drop OU DAILY PRN 08/22/15 02/18/17 08/21/15 History [Acular Ls 0.4% Ophth Isa] Loratadine/Pseudoephedrine 1 tab PO QPM 09/27/16 02/18/17 02/17/17 History [Claritin-D 24HR] Metoprolol [Lopressor TAB] 25 mg PO TID #90 tablet 10/01/16 02/18/17 02/18/17 Rx Vit D3/Folic Acid/B2/B6/B12 1 each PO DAILY 02/18/17 02/18/17 02/17/17 History [Folgard Tablet] Amiodarone [Cordarone 200 MG TAB] 200 mg PO BID 30 Days tablet 02/23/17 Unknown Rx Lisinopril [Zestril TAB] 2.5 mg PO QDAY tablet 02/23/17 Unknown Rx Loratadine [Claritin] 10 mg PO QDAY tablet 02/23/17 Unknown Rx levoFLOXacin [Levaquin TAB] 500 mg PO Q24H 6 Days tablet 02/23/17 Unknown Rx Active Meds: Active Medications Acetaminophen (Tylenol) 650 mg PO Q4H PRN PRN Reason: Pain MILD(1-3)/Fever >100.5/TUBBS Albuterol (Proventil) 2.5 mg IH Q4HRT PRN PRN Reason: Shortness Of Breath Amiodarone HCl 150 mg/ (Dextrose) 100 mls @ 600 mls/hr IV ONCE ONE Stop: 05/10/18 12:33 Last Admin: 05/10/18 12:05 Dose: 600 mls/hr Documented by: Amiodarone HCl 900 mg/ (Dextrose) 500 mls @ 33.333 mls/hr IV DIRECT SHAYY; Protocol Last Admin: 05/10/18 12:17 Dose: 1 mg/min, 33.333 mls/hr Documented by: Ondansetron HCl (Zofran) 4 mg IV Q8H PRN PRN Reason: Nausea And Vomiting Sodium Chloride (Sodium Chloride Flush Syringe 10 Ml) 10 ml IV BID SHAYY Sodium Chloride (Sodium Chloride Flush Syringe 10 Ml) 10 ml IV PRN PRN PRN Reason: LINE FLUSH Review of Systems Constitutional: no fever, no chills, no sweats Ears, nose, mouth and throat: no ear pain, no nose pain, no sinus pressure, no sinus pain Cardiovascular: palpitations, rapid/irregular heart beat, leg edema (chronic BLE), no chest pain, no orthopnea, no edema, no syncope, no lightheadedness, no shortness of breath, no dyspnea on exertion Respiratory: no cough, no congestion, no wheezing, no pain on inspiration Gastrointestinal: no abdominal pain, no nausea, no vomiting, no diarrhea, no constipation Genitourinary Male: no dysuria, no hematuria, no flank pain, no discharge, no urinary frequency, no urinary hesitancy Musculoskeletal: no neck stiffness, no neck pain Integumentary: no rash, no pruritis, no redness, no sores, no wounds Neurological: no head injury, no paralysis, no weakness, no parathesias, no numbness, no tingling, no seizures, no syncope Psychiatric: no anxiety Endocrine: no cold intolerance, no heat intolerance Hematologic/Lymphatic: no easy bruising, no easy bleeding Allergic/Immunologic: no urticaria, no wheezing Physical Examination Vital Signs Temp Pulse Resp BP Pulse Ox 98.4 F 127 H 20 101/80 94 05/10/18 10:16 05/10/18 10:16 05/10/18 10:16 05/10/18 10:16 05/10/18 10:16 General appearance: no acute distress HEENT: Positive: PERRL, Normocephaly, Mucus Membranes Moist Neck: Positive: neck supple, trachea midline Cardiac: Positive: irregularly irregular, S1/S2, Tachycardia Lungs: Positive: Decreased Breath Sounds Neuro: Positive: Grossly Intact Abdomen: Negative: Tender Skin: Negative: Rash Musculoskeletal: No Pain Extremities: Present: edema (trace BLE chronic edema) Results 05/10/18 10:49 05/10/18 10:49 Cardiac Enzymes 05/10/18 Range/Units 10:49 AST 18 (5-40) units/L CBC 05/10/18 Range/Units 10:49 WBC 7.6 (4.5-11.0) K/mm3 RBC 5.07 H (3.65-5.03) M/mm3 Hgb 15.6 H (11.8-15.2) gm/dl Hct 44.2 (35.5-45.6) % Plt Count 243 (140-440) K/mm3 Lymph # 0.9 L (1.2-5.4) K/mm3 [place] # 0.6 (0.0-0.8) K/mm3 Eos # 0.2 (0.0-0.4) K/mm3 Baso # 0.1 (0.0-0.1) K/mm3 Comprehensive Metabolic Panel 05/10/18 Range/Units 10:49 Sodium 140 (137-145) mmol/L Potassium 4.1 (3.6-5.0) mmol/L Chloride 100.5 (98-107) mmol/L Carbon Dioxide 24 (22-30) mmol/L BUN 10 (9-20) mg/dL Creatinine 0.7 L (0.8-1.5) mg/dL Glucose 114 H (75-100) mg/dL Calcium 9.5 (8.4-10.2) mg/dL Direct Bilirubin < 0.2 (0-0.2) mg/dL AST 18 (5-40) units/L ALT 13 (7-56) units/L Alkaline Phosphatase 68 (35-129) units/L Total Protein 7.1 (6.3-8.2) g/dL Albumin 4.5 (3.9-5) g/dL - Imaging and Cardiology Echo: report reviewed (02/2017 showed EF 15-20%, abnormal diastolic function, LA mildly dilated, RV systolic function severely reduced, pacemaker wire in RV, RA milldy dilated, mild aortic stenosis. ) Cardiac cath: report reviewed (07/2015 showed patent coronaries, functional mechanical AV. ) EKG: report reviewed, image reviewed EKG interpretations - Telemetry EKG Rhythm: Atrial Fibrillation - EKG Supraventricular dysrhythmia: atrial fibrillation AV and intraventricular conduction: left bundle branch block Assessment and Plan Assessment: Paroxysmal atrial fibrillation/atrial flutter with RVR Dilated NICMP - EF 15-20% AICD in situ Aortic valve replacement in 1999 - anticoagulated on coumadin COPD H/o HTN - BPs currently borderline hypotensive HLP DM LBBB PVD / CVI Sleep apnea Obesity Plan: Initiate IV amiodarone. Resume home cardiac regimen as tolerated, including coumadin. Plan for f/u echo once HR is improved. The patient has been seen in conjunction with Dr. Brooke Shore who agrees with the assessment and plan of care.
[2018-05-10] MEDS ORDERED: CORDARONE 150 MG in D5W 97 ML IV ONE (12:24)
[2018-05-10] MEDS ORDERED: KETOROLAC TROMETHAMINE OU PRN (14:06)
[2018-05-10] MEDS ORDERED: D50W (25GM) Syringe IV PRN (14:08)
[2018-05-10] MEDS ORDERED: COUMADIN PO SCH (15:00)
[2018-05-10] MEDS: HumaLOG SUB-Q SCH ×2 (17:20→21:41)
[2018-05-10] MEDS ORDERED: NON-FORMULARY (Simvastatin [Simvastatin] 20 MG) PO SCH (18:00)
[2018-05-10 18:13] LABS: INR 1.58 (0.87-1.13)
[2018-05-10] MEDS: FLONASE NS SCH (18:46)
[2018-05-10] MEDS: LOPRESSOR PO SCH (18:46)
[2018-05-10] MEDS: COUMADIN PO SCH (21:40)
[2018-05-10] MEDS: PRAVACHOL PO SCH (21:40)
[2018-05-10] MEDS: SODIUM CHLORIDE FLUSH SYRINGE 10 ML IV SCH (21:41)
[2018-05-11 06:20] LABS: BUN/Creatinine Ratio 16; Blood Urea Nitrogen 11 mg/dL (9-20); Calcium 9.1 mg/dL (8.4-10.2); Hemolysis Index 50
[2018-05-11] MEDS: HumaLOG SUB-Q SCH ×4 (08:30→21:54)
[2018-05-11 09:56] LABS: INR 1.7 (0.87-1.13)
[2018-05-11] MEDS ORDERED: NON-FORMULARY (Vit D3/Folic Acid/B2/B6/B12 [Folgard Tablet] 1 EACH) PO SCH (10:00)
[2018-05-11] MEDS: MOBIC PO SCH (10:13)
[2018-05-11] MEDS: ZYLOPRIM PO SCH (10:13)
[2018-05-11] MEDS: FOLBEE PLUS CZ PO SCH (10:14)
[2018-05-11] MEDS: LOPRESSOR PO SCH ×2 (10:14→17:36)
--- NOTE | 2018-05-11 10:15 | Progress Note ---
Assessment and Plan Assessment: Paroxysmal atrial fibrillation/atrial flutter with RVR Dilated NICMP - EF 15-20% AICD in situ Aortic valve replacement in 1999 - anticoagulated on coumadin COPD H/o HTN - BPs currently borderline hypotensive HLP DM LBBB PVD / CVI Sleep apnea Obesity Plan: Cont IV amio and give additional bolus 150mg x 1 now. Initiate digoxin. Cont lopressor as BPs permit. INR noted to be subtherapeutic. Initiate heparin gtt and cont PO coumadin per pharmacy dosing. If unable to optimize HR chemically, pt may require cardioversion. Will tentatively plan for JOHN guided DCCV tomorrow morning. Indications, potential risks and benefits of JOHN guided DCCV reviewed with pt and he is agreeable to proceed if necessary. NPO after MN. Assessment and plan reviewed with pt and he is agreeable. The patient has been seen in conjunction with Dr. Brooke Shore who agrees with the assessment and plan of care. Subjective Date of service: 05/11/18 Principal diagnosis: AFib Interval history: pt resting in bed, remains in AFib with RVR HR 115 - 120s. amio gtt infusing. Objective Last Vital Signs Temp 97.4 F L 05/11/18 07:42 Pulse 118 H 05/11/18 07:42 Resp 18 05/11/18 07:42 BP 109/80 05/11/18 07:42 Pulse Ox 96 05/11/18 07:42 - Physical Examination General: No Apparent Distress HEENT: Positive: PERRL, Normocephaly, Mucus Membranes Moist Neck: Positive: neck supple, trachea midline Cardiac: Positive: irregularly irregular, S1/S2, Tachycardia Lungs: Positive: Decreased Breath Sounds Neuro: Positive: Grossly Intact Abdomen: Negative: Tender Skin: Negative: Rash Musculoskeletal: No Pain Extremities: Present: edema (trace BLE chronic edema) - Labs and Meds Cardiac Enzymes 05/10/18 Range/Units 10:49 AST 18 (5-40) units/L Coagulation 05/10/18 05/11/18 Range/Units 17:23 08:40 PT 19.9 H 21.1 H (12.2-14.9) Sec. INR 1.58 H 1.70 H (0.87-1.13) CBC 05/10/18 Range/Units 10:49 WBC 7.6 (4.5-11.0) K/mm3 RBC 5.07 H (3.65-5.03) M/mm3 Hgb 15.6 H (11.8-15.2) gm/dl Hct 44.2 (35.5-45.6) % Plt Count 243 (140-440) K/mm3 Lymph # 0.9 L (1.2-5.4) K/mm3 [place] # 0.6 (0.0-0.8) K/mm3 Eos # 0.2 (0.0-0.4) K/mm3 Baso # 0.1 (0.0-0.1) K/mm3 Comprehensive Metabolic Panel 05/10/18 05/11/18 Range/Units 10:49 05:45 Sodium 140 142 (137-145) mmol/L Potassium 4.1 4.1 (3.6-5.0) mmol/L Chloride 100.5 103.8 (98-107) mmol/L Carbon Dioxide 24 26 (22-30) mmol/L BUN 10 11 (9-20) mg/dL Creatinine 0.7 L 0.7 L (0.8-1.5) mg/dL Glucose 114 H 111 H (75-100) mg/dL Calcium 9.5 9.1 (8.4-10.2) mg/dL Direct Bilirubin < 0.2 (0-0.2) mg/dL AST 18 (5-40) units/L ALT 13 (7-56) units/L Alkaline Phosphatase 68 (35-129) units/L Total Protein 7.1 (6.3-8.2) g/dL Albumin 4.5 (3.9-5) g/dL - Imaging and Cardiology EKG: report reviewed, image reviewed Echo: report reviewed (02/2017 showed EF 15-20%, abnormal diastolic function, LA mildly dilated, RV systolic function severely reduced, pacemaker wire in RV, RA milldy dilated, mild aortic stenosis. ) Cardiac cath: report reviewed (07/2015 showed patent coronaries, functional mechanical AV. ) AV and intraventricular conduction: left bundle branch block
[2018-05-11] MEDS: SODIUM CHLORIDE FLUSH SYRINGE 10 ML IV SCH ×2 (10:16→21:53)
[2018-05-11] MEDS: ZESTRIL PO SCH (10:18)
[2018-05-11] MEDS ORDERED: HEPARIN 10,000 UNITS/10 ML IV NR (10:30)
[2018-05-11] MEDS ORDERED: CORDARONE 150 MG in D5W 97 ML IV ONE (10:30)
[2018-05-11 11:01] LABS: Hematocrit 45.9 % (35.5-45.6); Hemoglobin 15.8 gm/dl (11.8-15.2)
[2018-05-11 11:12] LABS: INR 1.69 (0.87-1.13)
[2018-05-11 11:13] LABS: Partial Thromboplastin Time 39.2 Sec. (24.2-36.6)
[2018-05-11] MEDS: HEPARIN/ 0.45% NACL-25,000 UNIT/500 ML 25,000 UNIT/500 ML BAG IV SCH ×2 (11:48→19:14)
[2018-05-11] MEDS: LANOXIN IV SCH ×2 (12:37→17:30)
--- NOTE | 2018-05-11 14:55 | Progress Note ---
Assessment and Plan / Atrial fibrillation and flutter on heparin and amioderone drip also cont coumadin po Plan for cardioversion and JOHN tomorrow / Nonischemic cardiomyopathy strict I/O, daily weight, afterload reduction, supplemental oxygen, pulse oxime try, s/p AICD (automatic cardioverter/defibrillator) present Echo done 02/2017 showed EF 15-20%, Lexiscan MPI stress test done 09/2017 was negative for ischemia, EF 33%. LHC 07/2015 showed patent coronaries, functional mechanical AV. / COPD (chronic obstructive pulmonary disease) Stable , not in exacerbation / History of aortic valve replacement will follow JOHN report / DARCIE (obstructive sleep apnea) CPAP at bedtime / HTN (hypertension) cont to monitor BP, adjust meds as neeeded / Type 2 diabetes mellitus consistent carb diet, SSI /DVT Px SCD to BLE while in bed. Brief History: This is a 61-year-old gentleman, with a past medical history of paroxysmal atri al fibrillation s/p DCCV 02/2017 -anticoagulated on coumadin, hypertension, nonischemic cardiopathy, AICD in situ (Biotronik), COPD, diabetes, hyperlipidemia, aortic valve replacement in 1999, sleep apnea, hypertension, PVD, obesity presented to cardiology office with c/o palpitations. He was noted to be in AFib RVR and was referred to [facility] ED for further eval/management. Subjective Date of service: 05/11/18 Principal diagnosis: AFib Interval history: patient seen and examined' denies any chest pain, no SOB tolerating diet Objective - Constitutional Vitals: Vital Signs - 12hr 05/11/18 05/11/18 05/11/18 04:23 05:32 07:42 Temperature 97.5 F L 97.5 F L 97.4 F L Pulse Rate 86 118 H Respiratory 20 20 18 Rate Blood Pressure 106/74 109/80 Blood Pressure 106/74 [Right] O2 Sat by Pulse 95 96 Oximetry 05/11/18 05/11/18 05/11/18 10:14 10:18 12:37 Temperature Pulse Rate 118 H 118 H 115 H Respiratory Rate Blood Pressure 110/80 110/80 110/80 Blood Pressure [Right] O2 Sat by Pulse Oximetry 05/11/18 14:51 Temperature Pulse Rate Respiratory Rate Blood Pressure Blood Pressure [Right] O2 Sat by Pulse 94 Oximetry General appearance: Present: no acute distress, obese - EENT Eyes: PERRL, EOM intact ENT: hearing intact, clear oral mucosa Ears: bilateral: normal - Neck Neck: supple, normal ROM - Respiratory Respiratory effort: normal Respiratory: bilateral: CTA - Cardiovascular Rhythm: irregularly irregular Heart Sounds: Present: S1 & S2. Absent: gallop, rub Extremities: pulses intact, No edema, normal color, Full ROM - Gastrointestinal General gastrointestinal: Present: soft, non-tender, non-distended, normal bowel sounds - Integumentary Integumentary: clear, warm, dry - Musculoskeletal Musculoskeletal: 1, strength equal bilaterally - Neurologic Neurologic: moves all extremities - Psychiatric Psychiatric: memory intact, appropriate mood/affect, intact judgment & insight - Labs CBC & Chem 7: 05/13/18 05:14 05/12/18 05:02 Labs: Abnormal lab results 05/10/18 05/10/18 05/10/18 Range/Units 17:23 17:23 21:40 Hgb (11.8-15.2) gm/dl Hct (35.5-45.6) % PT 19.9 H (12.2-14.9) Sec. INR 1.58 H (0.87-1.13) APTT (24.2-36.6) Sec. Creatinine (0.8-1.5) mg/dL Glucose (75-100) mg/dL POC Glucose 114 H (70-105) Free T4 1.74 H (0.76-1.46) ng/dL 05/11/18 05/11/18 05/11/18 Range/Units 05:45 08:40 10:32 Hgb 15.8 H (11.8-15.2) gm/dl Hct 45.9 H (35.5-45.6) % PT 21.1 H (12.2-14.9) Sec. INR 1.70 H (0.87-1.13) APTT (24.2-36.6) Sec. Creatinine 0.7 L (0.8-1.5) mg/dL Glucose 111 H (75-100) mg/dL POC Glucose (70-105) Free T4 (0.76-1.46) ng/dL 05/11/18 Range/Units 10:32 Hgb (11.8-15.2) gm/dl Hct (35.5-45.6) % PT 21.0 H (12.2-14.9) Sec. INR 1.69 H (0.87-1.13) APTT 39.2 H (24.2-36.6) Sec. Creatinine (0.8-1.5) mg/dL Glucose (75-100) mg/dL POC Glucose (70-105) Free T4 (0.76-1.46) ng/dL
[2018-05-11] MEDS: CORDARONE 900 MG in D5W 482 ML IV SCH (16:49)
[2018-05-11] MEDS: COUMADIN PO SCH (17:04)
[2018-05-11] MEDS: FLONASE NS SCH (17:36)
[2018-05-11] MEDS: PRAVACHOL PO SCH (21:53)
[2018-05-12] MEDS: LANOXIN IV SCH ×2 (00:23→05:45)
[2018-05-12] MEDS: HEPARIN/ 0.45% NACL-25,000 UNIT/500 ML 25,000 UNIT/500 ML BAG IV SCH ×2 (04:04→22:17)
[2018-05-12 05:46] LABS: INR 1.96 (0.87-1.13)
[2018-05-12 06:05] LABS: BUN/Creatinine Ratio 18; Blood Urea Nitrogen 14 mg/dL (9-20); Hemolysis Index 12
[2018-05-12] MEDS: HumaLOG SUB-Q SCH ×4 (08:42→22:17)
--- NOTE | 2018-05-12 11:04 | Progress Note ---
Assessment and Plan Assessment: Paroxysmal atrial fibrillation/atrial flutter with RVR Dilated NICMP - EF 15-20% AICD in situ Aortic valve replacement in 1999 - anticoagulated on coumadin COPD H/o HTN - BPs currently borderline hypotensive HLP DM LBBB PVD / CVI Sleep apnea Obesity Plan: s/p JOHN guided DCCV today with successful conversion to NSR. Convert IV amio to PO amio. Initiate scheduled daily digoxin. Cont heparin gtt with coumadin until tx INR 2-3 is achieved. Likely d/c home tomorrow pending pt remains in NSR. The patient has been seen in conjunction with Dr. Brooke Shore who agrees with the assessment and plan of care. Subjective Date of service: 05/12/18 Principal diagnosis: AFib Interval history: pt resting in bed, remains in AFib with RVR HR 115 - 120s. amio gtt infusing. heparin gtt infusing. Objective Last Vital Signs Temp 98.3 F 05/12/18 08:08 Pulse 116 H 05/12/18 08:08 Resp 18 05/12/18 08:08 BP 106/84 05/12/18 08:08 Pulse Ox 95 05/12/18 08:08 - Physical Examination General: No Apparent Distress HEENT: Positive: PERRL, Normocephaly, Mucus Membranes Moist Neck: Positive: neck supple, trachea midline Cardiac: Positive: irregularly irregular, S1/S2, Tachycardia Lungs: Positive: clear to auscultation Neuro: Positive: Grossly Intact Abdomen: Negative: Tender Skin: Negative: Rash Musculoskeletal: No Pain Extremities: Present: edema (trace BLE chronic edema) - Labs and Meds Coagulation 05/11/18 05/12/18 Range/Units 10:32 05:02 PT 21.0 H 23.6 H (12.2-14.9) Sec. INR 1.69 H 1.96 H (0.87-1.13) APTT 39.2 H (24.2-36.6) Sec. Comprehensive Metabolic Panel 05/12/18 Range/Units 05:02 Sodium 143 (137-145) mmol/L Potassium 4.0 (3.6-5.0) mmol/L Chloride 105.1 (98-107) mmol/L Carbon Dioxide 26 (22-30) mmol/L BUN 14 (9-20) mg/dL Creatinine 0.8 (0.8-1.5) mg/dL Glucose 108 H (75-100) mg/dL Calcium 9.0 (8.4-10.2) mg/dL - Imaging and Cardiology EKG: report reviewed, image reviewed Echo: report reviewed (02/2017 showed EF 15-20%, abnormal diastolic function, LA mildly dilated, RV systolic function severely reduced, pacemaker wire in RV, RA milldy dilated, mild aortic stenosis. ) Cardiac cath: report reviewed (07/2015 showed patent coronaries, functional mechanical AV. ) AV and intraventricular conduction: left bundle branch block
[2018-05-12] MEDS ORDERED: NACL 0.9% 500 ML 500 ML IV SCH (13:00)
[2018-05-12] MEDS ORDERED: HURRICAINE ONE 20% TOPICAL SPRAY MM NR (13:00)
--- NOTE | 2018-05-12 13:01 | Anesthesia Day of Surgery ---
Anesthesia Day of Surgery - Day of Surgery Patient Examined: Yes Patient H&P Reviewed: Yes Patient is NPO: Yes
--- NOTE | 2018-05-12 13:02 | Anesthesia Consultation ---
Anesthesia Consult and Med Hx Date of service: 05/12/18 - Airway Anesthetic Teeth Evaluation: Poor ROM Head & Neck: Adequate Mental/Hyoid Distance: Adequate Mallampati Class: Class III Intubation Access Assessment: Possibly Difficult - Pre-Operative Health Status ASA Pre-Surgery Classification: ASA4 Proposed Anesthetic Plan: MAC - Pulmonary Hx Smoking: Yes (quit 10 years ago) Hx Asthma: No COPD: Yes Hx Pneumonia: No Hx Sleep Apnea: Yes (uses CPAP) - Cardiovascular System Hx Hypertension: Yes Hx Coronary Artery Disease: No (nonischemic cardiomyopathy EF 10-20%) Hx Angina: No Hx Internal Defibrillator: Yes Hx Valvular Heart Disease: Yes (aortic valve replacement 1999) - Endocrine Hx End Stage Renal Disease: No Hx Insulin Dependent Diabetes: Yes - Other Systems Hx Obesity: Yes (morbid obesity BMI 41.9)
--- NOTE | 2018-05-12 14:36 | Progress Note ---
Assessment and Plan / Atrial fibrillation and flutter on heparin drip, also cont coumadin po rate control with amiodarone and BB s/p cardioversion and JOHN today, Pt NSR now possible d/c tomorrow if remains NSR and INR therapeutic / Nonischemic cardiomyopathy strict I/O, daily weight, afterload reduction, supplemental oxygen, pulse oximetry, s/p AICD (automatic cardioverter/defibrillator) present Echo done 02/2017 showed EF 15-20%, Lexiscan MPI stress test done 09/2017 was negative for ischemia, EF 33%. LHC 07/2015 showed patent coronaries, functional mechanical AV. / COPD (chronic obstructive pulmonary disease) Stable , not in exacerbation / History of aortic valve replacement will follow JOHN report / DARCIE (obstructive sleep apnea) CPAP at bedtime / HTN (hypertension) cont to monitor BP, adjust meds as neeeded / Type 2 diabetes mellitus consistent carb diet, SSI /DVT Px SCD to BLE while in bed. Brief History: This is a 61-year-old gentleman, with a past medical history of paroxysmal atrial fibrillation s/p DCCV 02/2017 -anticoagulated on coumadin, hypertension, nonischemic cardiopathy, AICD in situ (Biotronik), COPD, diabetes, hyperlipidemia, aortic valve replacement in 1999, sleep apnea, hypertension, PVD, obesity presented to cardiology office with c/o palpitations. He was noted to be in AFib RVR and was referred to [facility] ED for further eval/management. Subjective Date of service: 05/12/18 Principal diagnosis: AFib Interval history: patient seen and examined' denies any chest pain, no SOB tolerating diet Objective - Exam Narrative Exam: General appearance: Present: no acute distress, obese - EENT Eyes: PERRL, EOM intact ENT: hearing intact, clear oral mucosa Ears: bilateral: normal - Neck Neck: supple, normal ROM - Respiratory Respiratory effort: normal Respiratory: bilateral: CTA - Cardiovascular Rhythm: regular Heart Sounds: Present: S1 & S2. Absent: gallop, rub Extremities: pulses intact, No edema, normal color, Full ROM - Gastrointestinal General gastrointestinal: Present: soft, non-tender, non-distended, normal bowel sounds - Integumentary Integumentary: clear, warm, dry - Musculoskeletal Musculoskeletal: 1, strength equal bilaterally - Neurologic Neurologic: moves all extremities - Psychiatric Psychiatric: memory intact, appropriate mood/affect, intact judgment & insight - Constitutional Vitals: Vital Signs - 12hr 05/12/18 05/12/18 05/12/18 04:27 05:45 08:08 Temperature 98.0 F 98.3 F Pulse Rate 120 H 116 H 116 H Pulse Rate [ Intra-Procedure ] Pulse Rate [ Post-Procedure] Respiratory 20 18 Rate Respiratory Rate [Intra- Procedure] Respiratory Rate [Post- Procedure] Blood Pressure 98/74 98/74 Blood Pressure [Intra- Procedure] Blood Pressure [Post-Procedure ] Blood Pressure 106/84 [Right] O2 Sat by Pulse 96 95 Oximetry O2 Sat by Pulse Oximetry [ Intra-Procedure ] O2 Sat by Pulse Oximetry [Post -Procedure] 05/12/18 05/12/18 05/12/18 12:13 12:28 12:42 Temperature Pulse Rate Pulse Rate [ 117 H 113 H Intra-Procedure ] Pulse Rate [ 79 Post-Procedure] Respiratory Rate Respiratory 28 H 23 Rate [Intra- Procedure] Respiratory 20 Rate [Post- Procedure] Blood Pressure Blood Pressure 136/94 184/111 [Intra- Procedure] Blood Pressure 140/90 [Post-Procedure ] Blood Pressure [Right] O2 Sat by Pulse Oximetry O2 Sat by Pulse 96 100 Oximetry [ Intra-Procedure ] O2 Sat by Pulse 98 Oximetry [Post -Procedure] 05/12/18 05/12/18 12:53 13:06 Temperature Pulse Rate Pulse Rate [ Intra-Procedure ] Pulse Rate [ 81 77 Post-Procedure] Respiratory Rate Respiratory Rate [Intra- Procedure] Respiratory 20 20 Rate [Post- Procedure] Blood Pressure Blood Pressure [Intra- Procedure] Blood Pressure 113/76 115/86 [Post-Procedure ] Blood Pressure [Right] O2 Sat by Pulse Oximetry O2 Sat by Pulse Oximetry [ Intra-Procedure ] O2 Sat by Pulse 98 97 Oximetry [Post -Procedure] - Labs CBC & Chem 7: 05/13/18 05:14 05/12/18 05:02 Labs: Abnormal lab results 05/11/18 05/12/18 05/12/18 Range/Units 18:06 05:02 05:02 PT 23.6 H (12.2-14.9) Sec. INR 1.96 H (0.87-1.13) Heparin Anti-Xa Level 0.26 L (0.3-0.7) U.I./ml Glucose 108 H (75-100) mg/dL
[2018-05-12] MEDS ORDERED: LANOXIN PO SCH (17:00)
[2018-05-12] MEDS: COUMADIN PO SCH (18:11)
[2018-05-12] MEDS: FLONASE NS SCH (18:11)
[2018-05-12] MEDS: LOPRESSOR PO SCH ×2 (18:11→18:12)
[2018-05-12] MEDS: ZESTRIL PO SCH (18:12)
[2018-05-12] MEDS: ZYLOPRIM PO SCH (18:12)
[2018-05-12] MEDS: FOLBEE PLUS CZ PO SCH (18:12)
[2018-05-12] MEDS: SODIUM CHLORIDE FLUSH SYRINGE 10 ML IV SCH (18:12)
[2018-05-12] MEDS: MOBIC PO SCH (18:12)
[2018-05-12] MEDS: CORDARONE PO SCH (22:16)
[2018-05-12] MEDS: PRAVACHOL PO SCH (22:17)
[2018-05-13] MEDS: SODIUM CHLORIDE FLUSH SYRINGE 10 ML IV SCH ×2 (02:08→08:00)
[2018-05-13 06:01] LABS: Hemoglobin 14.2 gm/dl (11.8-15.2)
[2018-05-13 06:07] LABS: INR 2.31 (0.87-1.13)
[2018-05-13] MEDS: HumaLOG SUB-Q SCH ×3 (08:01→17:03)
[2018-05-13] MEDS: LOPRESSOR PO SCH (11:02)
[2018-05-13] MEDS: ZESTRIL PO SCH (11:02)
[2018-05-13] MEDS: ZYLOPRIM PO SCH (11:03)
[2018-05-13] MEDS: FOLBEE PLUS CZ PO SCH (11:03)
[2018-05-13] MEDS: CORDARONE PO SCH (11:03)
[2018-05-13] MEDS: MOBIC PO SCH (11:04)
[2018-05-13 11:40] VITALS: BP 112/76
--- NOTE | 2018-05-13 14:13 | Progress Note ---
Assessment and Plan His INR is therapeutic. His cardiac status appears stable. Discontinue digoxin due to the potential for adverse interaction with amiodarone. He may be discharged on amiodarone 200 mg twice a day and other cardiac medications. Follow up with Dr. Brooke Shore in 1 week. - Patient Problems (1) Atrial fibrillation and flutter Current Visit: Yes Status: Acute (2) Nonischemic cardiomyopathy Current Visit: Yes Status: Chronic (3) AICD (automatic cardioverter/defibrillator) present Current Visit: Yes Status: Chronic (4) COPD (chronic obstructive pulmonary disease) Current Visit: Yes Status: Chronic (5) History of aortic valve replacement Current Visit: Yes Status: Chronic (6) DARCIE (obstructive sleep apnea) Current Visit: Yes Status: Chronic (7) HTN (hypertension) Current Visit: Yes Status: Chronic Qualifiers: Hypertension type: essential hypertension Qualified Code(s): I10 - Essential (primary) hypertension (8) Type 2 diabetes mellitus Current Visit: Yes Status: Chronic Qualifiers: Diabetes mellitus complication status: without complication Subjective Date of service: 05/13/18 Principal diagnosis: AF, s/p cardioversion/ NICMP, AICD, s/p AVR, DARCIE Interval history: No complaint. He is very anxious to go home. He claims that he has a relative at home that depends solely on him and he needs to be there. He is in sinus rhythm. Objective Vital Signs Temp Pulse Pulse Resp BP Pulse Ox 05/13/18 11:38 97.9 F 20 05/13/18 11:36 98.1 F 63 20 112/76 97 05/13/18 07:38 97.9 F 64 18 117/72 96 05/13/18 04:16 97.6 F 63 20 126/68 94 05/13/18 00:19 98.2 F 70 20 107/68 96 05/12/18 22:35 74 16 98 05/12/18 20:44 69 05/12/18 20:03 98.5 F 74 20 104/68 98 05/12/18 16:20 98.2 F 86 20 101/66 93 - Physical Examination General: No Apparent Distress HEENT: Positive: EOMI, Normocephaly, Mucus Membranes Moist Neck: Positive: neck supple, trachea midline Cardiac: Positive: Reg Rate and Rhythm, S1/S2 Lungs: Positive: clear to auscultation Neuro: Positive: Grossly Intact Abdomen: Positive: Soft, Active Bowel Sounds. Negative: Tender Skin: Negative: Rash Musculoskeletal: Normal Range of Motion Extremities: Absent: edema - Labs and Meds Coagulation 05/13/18 Range/Units 05:14 PT 27.0 H (12.2-14.9) Sec. INR 2.31 H (0.87-1.13) CBC 05/13/18 Range/Units 05:14 Hgb 14.2 (11.8-15.2) gm/dl Hct 42.0 (35.5-45.6) % Plt Count 205 (140-440) K/mm3 - Imaging and Cardiology EKG: report reviewed, image reviewed Echo: report reviewed (02/2017 showed EF 15-20%, abnormal diastolic function, LA mildly dilated, RV systolic function severely reduced, pacemaker wire in RV, RA milldy dilated, mild aortic stenosis. ) Cardiac cath: report reviewed (07/2015 showed patent coronaries, functional mechanical AV. ) - Telemetry EKG Rhythm: Sinus Rhythm AV and intraventricular conduction: left bundle branch block
--- NOTE | 2018-05-13 15:02 | Discharge Summary ---
Providers - Providers Date of Admission: 05/10/18 12:17 Date of discharge: 05/13/18 Attending physician: NEVILLE BAEZ [facility] Reason for admission: palpitation Condition: Fair Pertinent studies: CXR Hospital course: Brief History: This is a 61-year-old gentleman, with a past medical history of paroxysmal atrial fibrillation s/p DCCV 02/2017 -anticoagulated on coumadin, hypertension, nonischemic cardiopathy, AICD in situ (Biotronik), COPD, diabetes, hyperlipidemia, aortic valve replacement in 1999, sleep apnea, hypertension, PVD, obesity presented to cardiology office with c/o palpitations. He was noted to be in AFib RVR and was referred to [facility] ED for further eval/management. Discharge diagnosis and management: / Atrial fibrillation and flutter Placed on heparin drip, also continued coumadin po to bridge with heparin rate controlled with amiodarone and BB s/p cardioversion and JOHN on 05/12, Patient was NSR following cardioversion now d/c today as remains NSR and INR therapeutic Will continue outpt followup at cardiology office / Nonischemic cardiomyopathy - CHF acute on chronic Managed with strict I/O, daily weight, afterload reduction, supplemental oxygen, pulse oximetry, AICD (automatic cardioverter/defibrillator) present Echo done 02/2017 showed EF 15-20%, Lexiscan MPI stress test done 09/2017 was negative for ischemia, EF 33%. LHC 07/2015 showed patent coronaries, functional mechanical AV. / COPD (chronic obstructive pulmonary disease) Stable , not in exacerbation / History of aortic valve replacement, will cont outpt followup / DARCIE (obstructive sleep apnea) CPAP at bedtime / HTN (hypertension) Monitored BP, adjusted meds as neeeded / Type 2 diabetes mellitus Managed with consistent carb diet, SSI /DVT Px SCD to BLE while in bed. Disposition: TO HOME OR SELFCARE Time spent for discharge: 34 minutes Core Measure Documentation - Palliative Care Palliative Care/ Comfort Measures: Not Applicable - Core Measures Any of the following diagnoses?: history only Exam - Physical Exam Narrative exam: General appearance: Present: no acute distress, obese - EENT Eyes: PERRL, EOM intact ENT: hearing intact, clear oral mucosa Ears: bilateral: normal - Neck Neck: supple, normal ROM - Respiratory Respiratory effort: normal Respiratory: bilateral: CTA - Cardiovascular Rhythm: regular Heart Sounds: Present: S1 & S2. Absent: gallop, rub Extremities: pulses intact, No edema, normal color, Full ROM - Gastrointestinal General gastrointestinal: Present: soft, non-tender, non-distended, normal bowel sounds - Integumentary Integumentary: clear, warm, dry - Musculoskeletal Musculoskeletal: 1, strength equal bilaterally - Neurologic Neurologic: moves all extremities - Psychiatric Psychiatric: memory intact, appropriate mood/affect, intact judgment & insight - Constitutional Vitals: Temp Pulse Resp BP Pulse Ox 97.9 F 63 20 112/76 97 05/13/18 11:38 05/13/18 11:36 05/13/18 11:38 05/13/18 11:36 05/13/18 11:36 Plan Activity: advance as tolerated Weight Bearing Status: Non-Weight Bearing Diet: low fat, low salt, diabetic Follow up with: STEVE KNAPP MD [Primary Care Provider] - 3-5 Days Forms: Warfarin Discharge Instruction Prescriptions: Amiodarone [Cordarone 200 MG TAB] 200 mg PO BID #30 tablet
[2018-05-13] MEDS: COUMADIN PO SCH (16:27)
== END 2018-05-13 17:03 | disposition home or self-care (01) | DRG 308 ==
LOC: ED 10:10 → 4A 12:17 → IMCU 15:33 → 4A 15:45
PROVIDERS: ADMIT Internal Medicine; ATTEND Internal Medicine
PROC: 5A2204Z Restoration of Cardiac Rhythm, Single (ICD-10-PCS; principal; 2018-05-12)
DX: I48.92 Unspecified atrial flutter (principal); I50.23 Acute on chronic systolic (congestive) heart failure; Z68.41 Body mass index [BMI] 40.0-44.9, adult; I50.20 Unspecified systolic (congestive) heart failure; I42.0 Dilated cardiomyopathy; J44.9 Chronic obstructive pulmonary disease, unspecified; E11.9 Type 2 diabetes mellitus without complications; E66.01 Morbid (severe) obesity due to excess calories; M10.9 Gout, unspecified; G47.33 Obstructive sleep apnea (adult) (pediatric); I44.7 Left bundle-branch block, unspecified; E78.5 Hyperlipidemia, unspecified; I48.0 Paroxysmal atrial fibrillation; I11.0 Hypertensive heart disease with heart failure; Z79.899 Other long term (current) drug therapy; Z71.3 Dietary counseling and surveillance; Z87.891 Personal history of nicotine dependence; Z95.810 Presence of automatic (implantable) cardiac defibrillator; Z79.84 Long term (current) use of oral hypoglycemic drugs; Z95.4 Presence of other heart-valve replacement; Z79.01 Long term (current) use of anticoagulants; Z88.2 Allergy status to sulfonamides; Z88.0 Allergy status to penicillin; Z82.49 Family history of ischemic heart disease and other diseases of the circulatory system; Z83.3 Family history of diabetes mellitus
CPT/HCPCS: 36415; 71045; 80048; 80076; 80162; 82962; 83735; 83880; 84100; 84439; 84443; 84484; 85014; 85018; 85025; 85049; 85520; 85610; 85730; 93005; 93010; 93312; 93320; 93325; 96374; G0378; A9270-GY; J0282; J1160; J1644; J7060

== ENCOUNTER 2018-06-15 05:56 | Day surgery (SDC) | payer OTHER ==
[2018-06-15 06:33] LABS: Hematocrit 44.2 % (35.5-45.6); Hemoglobin 15.1 gm/dl (11.8-15.2); Mean Corpuscular HGB Conc 34 % (32-34); Mean Corpuscular Volume 88 fl (84-94); Platelet Count 198 K/mm3 (140-440); Red Blood Count 5.04 M/mm3 (3.65-5.03); Red Cell Distribution Width 14.8 % (13.2-15.2)
[2018-06-15 06:34] LABS: ABG Base Excess 0.9 mmol/L (-2.0-3.0); ABG HCO3 25.8 mmol/L (20.0-26.0); ABG Methemoglobin 0.6 % (0.0-1.5); ABG Oxygen Saturation 96.7 % (95.0-99.0); ABG PCO2 42.2 mm Hg; ABG PH 7.405 pH Units (7.350-7.450); ABG PO2 86.9 mm Hg (80.0-90.0)
[2018-06-15 06:50] LABS: Alanine Aminotransferase 74 units/L (7-56); Albumin 4.4 g/dL (3.9-5); BUN/Creatinine Ratio 11; Blood Urea Nitrogen 9 mg/dL (9-20); Calcium 9.5 mg/dL (8.4-10.2); Chol/HDL Ratio 3.15 %; HDL Cholesterol 51 mg/dL (40-59); Hemolysis Index 4; LDL Cholesterol,Direct 91 mg/dL (50-130)
[2018-06-15] MEDS ORDERED: NACL 0.9% 1000 ML 1,000 ML IV SCH (07:00)
[2018-06-15] MEDS ORDERED: WATER FOR IRRIG STERILE ONE (07:21)
[2018-06-15] MEDS ORDERED: WATER FOR IRRIG STERILE IR ONE (07:21)
--- NOTE | 2018-06-15 07:31 | Anesthesia Consultation ---
Anesthesia Consult and Med Hx Date of service: 06/15/18 - Airway Anesthetic Teeth Evaluation: Good (some missing teeth) ROM Head & Neck: Adequate Mental/Hyoid Distance: Adequate Mallampati Class: Class III Intubation Access Assessment: Possibly Difficult - Pre-Operative Health Status ASA Pre-Surgery Classification: ASA4 Proposed Anesthetic Plan: MAC - Pulmonary Hx Smoking: Yes (former) Hx Asthma: No COPD: Yes Hx Pneumonia: No Hx Sleep Apnea: Yes (uses CPAP) - Cardiovascular System Hx Hypertension: Yes Hx Coronary Artery Disease: No (nonischemic cardiomyopathy EF 10-20%) Hx Angina: No Hx Cardia Arrhythmia: Yes (atrial fibrillation) Hx Internal Defibrillator: Yes (ICD) Hx Valvular Heart Disease: Yes (PROSTHETIC HEART VALVE (00')) - Endocrine Hx End Stage Renal Disease: No Hx Non-Insulin Dependent Diabetes: Yes - Other Systems Hx Obesity: Yes (morbid obesity BMI 41.9) - Additional Comments Anesthesia Medical History Comments: Lost 20 lbs. High risk
--- NOTE | 2018-06-15 07:32 | Anesthesia Day of Surgery ---
Anesthesia Day of Surgery - Day of Surgery Patient Examined: Yes Patient H&P Reviewed: Yes Patient is NPO: Yes Beta Blockers: Yes Cardiac Clearance: Yes
[2018-06-15] MEDS ORDERED: AMIDATE IV ONE (07:35)
[2018-06-15] MEDS ORDERED: DIPRIVAN 10 MG/ML IV ONE (07:35)
--- NOTE | 2018-06-15 08:10 | Short Stay Summary ---
Short Stay Documentation - Allergies and Medications Current Medications: Allergies Sulfa (Sulfonamide Antibiotics) Allergy (Verified 08/22/15 08:11) Shortness of Breath Penicillins Adverse Reaction (Verified 08/22/15 08:11) "sleep a lot" Home Medications Medication Instructions Recorded Confirmed Last Taken Type Allopurinol 100 mg PO DAILY 07/19/15 06/14/18 06/13/18 History Simvastatin 20 mg PO QPM 07/19/15 06/14/18 06/14/18 History Warfarin Sodium 7.5 mg PO 3XW 07/19/15 06/14/18 02/17/17 History Warfarin [Coumadin] 5 mg PO 4XW 07/19/15 06/14/18 02/18/17 History metFORMIN [Glucophage] 850 mg PO BID 07/19/15 06/14/18 06/13/18 History Fluticasone [Flonase] 2 spray INNOSTRIL QPM 08/22/15 06/14/18 02/17/17 History Ketorolac Tromethamin 0.4%(Nf) 1 drop OU DAILY PRN 08/22/15 06/14/18 06/14/18 History [Acular Ls 0.4% Ophth Isa] Vit D3/Folic Acid/B2/B6/B12 1 each PO DAILY 02/18/17 06/14/18 06/13/18 History [Folgard Tablet] Lisinopril [Zestril TAB] 2.5 mg PO QDAY tablet 02/23/17 06/14/18 06/14/18 Rx Meloxicam [Mobic] 7.5 mg PO QDAY 05/10/18 06/14/18 06/14/18 History Metoprolol [Lopressor TAB] 25 mg PO QPM 05/10/18 06/14/18 06/14/18 History Metoprolol [Lopressor TAB] 50 mg PO QAM 05/10/18 06/14/18 06/14/18 History Amiodarone [Cordarone 200 MG TAB] 200 mg PO BID #30 tablet 05/13/18 06/14/18 06/14/18 Rx Active Medications Sodium Chloride (Nacl 0.9% 1000 Ml) 1,000 mls @ 50 mls/hr IV DIRECT SHAYY Last Admin: 06/15/18 07:30 Dose: 50 mls/hr Documented by: - Brief post op/procedure progress note Date of procedure: 06/15/18 Pre-op diagnosis: 1. Colon cancer screening 2. Constipation Post-op diagnosis: same (1. Colon polyp 2. Diverticulosis coli 3. Internal hemorrhoids) Procedure: colonoscopy with cold biopsy polypectomy Anesthesia: MAC Findings: as above Surgeon: RODGER BARAHONA Estimated blood loss: none Pathology: list (TRANSVERSE COLON POLYP) Specimen disposition: to lab Condition: stable - Disposition Condition at discharge: Stable Disposition: DC- TO HOME OR SELFCARE Short Stay Discharge Plan Activity: no restrictions Diet: regular, low salt Follow up with: TODD WRIGHT MD [Primary Care Provider] - 7 Days
[2018-06-15 08:55] VITALS: BP 121/75
== END 2018-06-15 05:57 | disposition home or self-care (01) ==
LOC: GIO 05:56
PROVIDERS: ATTEND Internal Medicine Gastroenterology
DX: D12.3 Benign neoplasm of transverse colon (principal); K59.00 Constipation, unspecified; K57.30 Diverticulosis of large intestine without perforation or abscess without bleeding; K64.8 Other hemorrhoids; E66.01 Morbid (severe) obesity due to excess calories; E11.9 Type 2 diabetes mellitus without complications; I48.92 Unspecified atrial flutter; I25.5 Ischemic cardiomyopathy; G47.33 Obstructive sleep apnea (adult) (pediatric); J44.9 Chronic obstructive pulmonary disease, unspecified; E78.5 Hyperlipidemia, unspecified; I11.0 Hypertensive heart disease with heart failure; I50.9 Heart failure, unspecified; I48.91 Unspecified atrial fibrillation; Z95.810 Presence of automatic (implantable) cardiac defibrillator; Z95.2 Presence of prosthetic heart valve; Z88.2 Allergy status to sulfonamides; Z86.010 Personal history of colon polyps; Z88.0 Allergy status to penicillin; Z79.899 Other long term (current) drug therapy; Z79.01 Long term (current) use of anticoagulants; Z79.84 Long term (current) use of oral hypoglycemic drugs; Z87.891 Personal history of nicotine dependence; Z82.49 Family history of ischemic heart disease and other diseases of the circulatory system; F32.9 Major depressive disorder, single episode, unspecified; M19.90 Unspecified osteoarthritis, unspecified site; E66.9 Obesity, unspecified; Z68.41 Body mass index [BMI] 40.0-44.9, adult
CPT/HCPCS: 36415; 45380; 80053; 80061; 82785; 82803; 82962; 84436; 84443; 85027; 88305; J2704; J7030

== ENCOUNTER 2018-08-18 08:54 | Outpatient (CLI) | payer OTHER ==
[2018-08-18 11:38] LABS: Chol/HDL Ratio 2.3 %; Uric Acid 8.4 mg/dL (3.5-7.6)
== END 2018-08-18 08:55 | disposition home or self-care (01) ==
LOC: LAB 08:54
PROVIDERS: ATTEND Internal Medicine
DX: Z12.5 Encounter for screening for malignant neoplasm of prostate (principal); E11.9 Type 2 diabetes mellitus without complications; E78.5 Hyperlipidemia, unspecified; R82.0 Chyluria; I11.0 Hypertensive heart disease with heart failure; I50.9 Heart failure, unspecified; J44.9 Chronic obstructive pulmonary disease, unspecified
CPT/HCPCS: 36415; 80061; 83036; 84153; 84550

== ENCOUNTER 2018-12-29 09:23 | Outpatient (CLI) | payer OTHER ==
[2018-12-29 10:50] LABS: Chol/HDL Ratio 2.28 %; Uric Acid 8.2 mg/dL (3.5-7.6)
== END 2018-12-29 09:24 | disposition home or self-care (01) ==
LOC: LAB 09:23
PROVIDERS: ATTEND Internal Medicine
DX: E78.5 Hyperlipidemia, unspecified (principal); E11.9 Type 2 diabetes mellitus without complications; E79.0 Hyperuricemia without signs of inflammatory arthritis and tophaceous disease; E78.00 Pure hypercholesterolemia, unspecified; E66.01 Morbid (severe) obesity due to excess calories; I48.92 Unspecified atrial flutter; I11.0 Hypertensive heart disease with heart failure; I50.9 Heart failure, unspecified
CPT/HCPCS: 36415; 80061; 83036; 84550

== ENCOUNTER 2019-05-15 12:16 | Outpatient (CLI) | payer OTHER ==
[2019-05-15 12:35] LABS: Basophils % (Auto) 0.8 % (0.0-1.8); Eosinophils # (Auto) 0.1 K/mm3 (0.0-0.4); Eosinophils % (Auto) 1.9 % (0.0-4.3); Hematocrit 43.9 % (35.5-45.6); Hemoglobin 14.4 gm/dl (11.8-15.2); Lymphocytes # (Auto) 0.7 K/mm3 (1.2-5.4); Lymphocytes % (Auto) 14.5 % (13.4-35.0); Mean Corpuscular HGB Conc 33 % (32-34); Mean Corpuscular Volume 90 fl (84-94); Monocytes # (Auto) 0.5 K/mm3 (0.0-0.8); Monocytes % (Auto) 8.7 % (0.0-7.3); Platelet Count 187 K/mm3 (140-440); Red Cell Distribution Width 15.7 % (13.2-15.2)
[2019-05-15 13:05] LABS: Alanine Aminotransferase 17 units/L (7-56); Albumin 4.6 g/dL (3.9-5); BUN/Creatinine Ratio 20; Blood Urea Nitrogen 18 mg/dL (9-20); Calcium 9.7 mg/dL (8.4-10.2); Chol/HDL Ratio 2.32 %; HDL Cholesterol 64 mg/dL (40-59); Hemolysis Index 9; LDL Cholesterol,Direct 73 mg/dL (50-130); Uric Acid 7.7 mg/dL (3.5-7.6)
[2019-05-18 16:03] LABS: Vitamin D, 25-OH, D2 <4 ng/mL
== END 2019-05-15 12:17 | disposition home or self-care (01) ==
LOC: LAB 12:16
PROVIDERS: ATTEND Internal Medicine
DX: Z13.21 Encounter for screening for nutritional disorder (principal); Z00.00 Encounter for general adult medical examination without abnormal findings; Z13.29 Encounter for screening for other suspected endocrine disorder; E11.40 Type 2 diabetes mellitus with diabetic neuropathy, unspecified; E78.5 Hyperlipidemia, unspecified; E79.0 Hyperuricemia without signs of inflammatory arthritis and tophaceous disease
CPT/HCPCS: 36415; 80053; 80061; 82306; 82607; 83036; 84443; 84550; 85025